=== PATIENT | male | born 1980 | race Caucasian/White ===

== ENCOUNTER 2025-03-11 09:24 | Emergency (ER) | payer OTHER, SELFPAY ==
--- OUTSIDE RECORDS SUMMARY | 2025-03-11 09:27 | XMS_ITS | Encounter Summary ---
Author Organization [place] Address [address] [facility] [place] [address] Care Team Providers Care Central Stores Attendant Name Role Phone Misty Flynn MD Primary Care Provider Tamanna Leong PA-C Unavailable [phone] Samuel Holly MD Unavailable [phone] Nisreen Verduzco RN Unavailable [phone] Misty Flynn MD Unavailable Lilia iDego RAIL DETECTOR CAR OPERATOR UKRA[employer]IAN [employer] INSTRUCTOR Unavailable Bo Dotson RAIL DETECTOR CAR OPERATOR [employer]RA[employer]OLK [employer] INSTRUCTOR Unavailable + [phone] Bo Dotson APRN [employer] INSTRUCTOR Unavailable + [phone] Encounter Details Date Type Department Care Team (Late st Contact Info) Description 12/27/2024 [facility] Medical Advice [address] [address] Anusha Watts, ACCOUNTING MACHINE SERVICER Social History Tobacco Use Types Packs/Day Years Used Date Smoking Tobacco: Never Smokeless Tobacco: Never Alcohol Use Standard Drinks/Week Comments Yes 0 (1 standard drink = 0.6 oz pur e alcohol) moderate use Social Connection and Isolation Panel [NHANES] A nswer Date Recorded Frequency of Communication with Friends and Fami ly Not on file 09/08/2024 How often do you get together with friends or re latives? Once a week 09/08/2024 Attends Jainism Services Not on file 09/08 Active Member of Clubs or Organizations Not on f ile 09/08/2024 Attends Club or Organization Meetings Not on prabhu e 09/08/2024 Marital Status Not on file 09/08/2024 AUDIT-C Answer Date Recorded Q1: How often do you have a drink containing alc ohol? 2-4 times a month 11/25/2023 Q2: How many drinks containi ng alcohol do you have on a typical day when you are drinking? 1 or 2 11/25/2023 Frequency of Binge Drinking Not on file 11/10 PHQ-2 Answer Date Recorded PHQ-2 Score 0 12/24/2024 [facility] [place] [facility] Occupat ional Health - Occupational Stress Questionnaire Answer Date Recorded Do you feel stress - tense, restless, nervous, or anxious, or unable to sleep at night because your mind is troubled all the time - these days? Not at all 09/08/2024 Exercise Vital Sign Answer Date Recorde d On average, how many days pe r week do you engage in moderate to strenuous exercise (like a brisk walk)? 0 days 09/08/2024 On average, how many minutes do you engage in exercise at this level? 0 min 09/08/2024 Adolescent Education Answer Date Record ed Getting School Help Needed Not on file 08/24 Food Insecurity Answer Date Recorded Within the past 12 months, d id you worry that your food would run out before you got money to buy more? No 09/08/2024 Within the past 12 months, d id the food you bought just not last and you didn t have money to get more? No 09/08/2024 Housing Stability Answer Date Recorded Do you have housing? (Toniin g is defined as stable permanent housing and does not include staying outside in a car, in a tent, in an abandoned building, in an overnight long term, or couch-surfing.) Yes 09/08/2024 Are you worried about losing your housing? No 09/08/2024 Financial Resource Strain Answer Date R ecorded Within the past 12 months, h ave you or your family members you live with been unable to get utilities (heat, electricity) when it was really needed? No 09/08/2024 Transportation Needs Answer Date Record ed Within the past 12 months, h as lack of transportation kept you from medical appointments, getting your medicines, non-medical meetings or appointments, work, or from getting things that you need? No 09/08/2024 Interpersonal Safety Answer Date Record ed Do you feel physically and e motionally safe where you currently live? Yes 09/08/2024 Within the past 12 months, h ave you been hit, slapped, kicked or otherwise physically hurt by someone? No 09/08/2024 Within the past 12 months, h ave you been humiliated or emotionally abused in other ways by your partner or ex-partner? 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 Gender Identity Not on file Sexual Orientation Not on file documented as of this encounter Plan of Treatment Upcoming Encounters Date Type Department Care Team (Late st Contact Info) Description 04/15/2025 10:30 AM CDT Office Visit [facility] [address] [place] [phone] [place] [address] [place] [address] documented as of this encounter Visit Diagnoses Not on filedocumented in this encounter Additional Health Concerns Assessment Noted Time PHQ-9 Depression Total Score: 0 11/14/19 24 1:43 PM CHEMICAL ETCHING PROCESSOR documented as of this encounter Care Teams Central Stores Attendant Relationship Specialty [place] [address] [place] [address] PCP - General Family Practice 11/14/14 Tamanna Leong PA-C [address] [facility] [address] [place], [place] [id number] Physician Batch Dumper Physician Batch Dumper 04/02/17 Samuel Holly MD [address] [facility] [address] [place], [place] [address] Urology 04/02/17 Nisreen Verduzco, RN Registered Nurse Urology 04/11/17 [place] [address] [place] [address] Assigned PCP 03/17/16 Lilia Diego APRN UKRAINIAN [employer]OLK ARTS INSTRUCTOR [address] [place] [address] Nurse Practitioner Family Medicine 02/21/22 Bo Dotson APRN UKRAINIAN FOLK ARTS INSTRUCTOR [address] [place] [address] Nurse Practitioner Urology 09/13/24 Bo Dotson APRN UKRAINIAN FOLK ARTS INSTRUCTOR [address] [place] [address] Assigned Surgical Provider 01/02/25 documented as of this encounter
--- OUTSIDE RECORDS SUMMARY | 2025-03-11 09:27 | XMS_ITS | Encounter Summary ---
Author Organization [place] Address [address] [facility] [place] [address] Care Team Providers Care Lead Java Software Engineer Name Role Phone Misty Flynn MD Primary Care Provider [phone] Tamanna Leong PA-C Unavailable [phone] Samuel Holly MD Unavailable [phone] Nisreen Verduzco RN Unavailable [phone] Misty Flynn MD Unavailable Lilia Diego GROUP HOME MANAGER MEDICAL AUDITOR Unavailable Elo Phipps Unavailable Unavailable Bo Dotson GROUP HOME MANAGER MEDICAL AUDITOR Unavailable + [phone] Bo Dotson GROUP HOME MANAGER MEDICAL AUDITOR Unavailable + [phone] Reason for Visit * Reason Onset Date Comments Patient Request for Note/Letter 09/06/2020 positive covid, needs work note Encounter Details Date Type Department Care Team (Late st Contact Info) Description 09/06/2020 [facility] Medical Advice [address] [address] Misty Flynn MD [address] [place] [id number] Patient Request for Note/Letter (positive ... 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 Unable to assess 08/12/2020 1:07 PM CDT documented as of this encounter Miscellaneous Notes * Telephone Encounter - Norma Solis RN - 09/06/2020 11:[address] Flynn - Please review, RN pended letter, please approve and advise if we should order another Covid test Patient tested positive for COVID on 08/29/2020. He had the test completed at [facility]. Patient has been out of work since 08/28/2020. 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 Employer is telling patient he needs to have a negative Covid test prior to returning to work. Patient contacted [facility] to get test repeated and they advised they will not check for a full 90 days as he would still show positive result Patient does not have any symptoms, he lost taste and smell x 3 days, which has now returned Patient does not have any coughing, fever, shortness of breath Patient requesting note for employer stating that he can return to work after 14 days of quarantine. RN advised that if this is an employer requirement, he may need to have another test completed Norma Solis Registered Nurse, AMY (Patient Advocate Liason) [facility] [phone] documented in this encounter Plan of Treatment Upcoming Encounters Date Type Department Care Team (Late st Contact Info) Description 04/15/2025 10:30 AM CDT Office Visit [facility] [place] [id number] [place] [phone] Misty Flynn MD [address] [place] [phone] documented as of this encounter Visit Diagnoses Not on filedocumented in this encounter Additional Health Concerns Assessment Noted Time PHQ-9 Depression Total Score: 0 06/07/20 20 7:08 AM CDT documented as of this encounter Care Teams Lead Java Software Engineer Relationship Specialty [place] [address] [place] [address] PCP - General Family Practice 11/14/14 Tamanna Leong PA-C [address] [place] [address] Physician Adult Daycare Coordinator Physician Adult Daycare Coordinator 04/02/17 Samuel Holly MD [address] [facility] [address] [place], [place] [address] Urology 04/02/17 Nisreen Verduzco, RN Registered Nurse Urology 04/11/17 [place] [address] [place] [address] Assigned PCP 03/17/16 Lilia Diego APRN MEDICAL AUDITOR [address] [place] [address] Nurse Practitioner Family Medicine 02/21/22 Elo Phipps Personal Advocate & Liaison (PAL) Family Medicine 05/29/23 07/21/23 Bo Dotson APRN MEDICAL AUDITOR [address] [place] [address] Nurse Practitioner Urology 09/13/24 Bo Dotson APRN MEDICAL AUDITOR [address] [place] [address] Assigned Surgical Provider 01/02/25 documented as of this encounter
--- OUTSIDE RECORDS SUMMARY | 2025-03-11 09:27 | XMS_ITS | Clinical Summary ---
Author Organization [place] Address [address] [facility] [place] [address] Care Team Providers Care Channel Layer Name Role Phone Misty Flynn MD Primary Care Provider Tamanna Leong PA-C Unavailable Samuel Holly MD Unavailable Nisreen Verduzco RN Unavailable [phone] Misty Flynn MD Unavailable Lilia Diego BEARINGIZER FUEL SYSTEM MAINTENANCE WORKER Unavailable Bo Dotson BEARINGIZER FUEL SYSTEM MAINTENANCE WORKER Unavailable [phone] Bo Dotson BEARINGIZER FUEL SYSTEM MAINTENANCE WORKER Unavailable [phone] Allergies Active Allergy Reactions Criticality Noted Date Comments Doxycycline Nausea and Vomiting 03/13/2016 Ketorolac Tromethamine Rash Low 03/24/2017 Seasonal Allergies 07/08/2013 Tramadol Itching 03/24/2017 Medications fluticasone (FLONASE) 50 MCG/ACT nasal sprayIndications: Seasonal allergic rhinitis, unspecified trigger Crooks 1-2 sprays into both nostrils daily 48 g 3 4 Active oxyCODONE-acetami nophen (PERCOCET) 7.5-325 MG per tablet Take 1 tablet by mouth every 3 hours 4 Active losartan (COZAAR) 50 MG tabletIndications :Benign essential hypertension Take 1 tablet (50 mg) by mouth daily. 90 tablet 3 4 Active sildenafil (VIAGRA) 50 MG tabletIndications :Erectile dysfunction, unspecified erectile dysfunction type Take 1 tablet (50 mg) by mouth daily as needed (sexual activity). 30 tablet 4 4 Active Active Problems Problem Noted Date Diagnosed Date Erectile dysfunction, unspecified erectile dysfu nction type 09/08/2024 Assessment & Plan (09/08/2024 12:03 PM CDT): Started about 1 year ago, pt has been engaged to a new partner and he has been having hard time obtaining erection and maintaining it, will start on sildenafil as needed. Medications side effects and risks was discussed with patient in details, including flushing and headaches..., and advised to call if any side effects, pt agreed to take the medications, and with the treatment plan. . Chronic pain in testicle 07/18/2021 Assessment & Plan (09/08/2024 11:32 AM CDT): Pt has chronic pain in the Left testicle more than Right, and he wishes to discuss with Urologist about possible reversal of his vasectomy as the pain started afer the procedure. 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 Acute recurrent maxillary sinusitis 01/20/2018 Benign essential hypertension 2016 Assessment & Plan (09/08/2024 11:33 AM CDT): Controlled on Losartan 50 mg daily, check BMP. Fixation hardware in foot 04/16/2016 Osteoarthritis of foot 01/08/2016 Seasonal allergic rhinitis 03/02/2009 Resolved Problems Problem Noted Date Diagnosed Date Resolved Date Pain disorder with related p sychological factors (CODE) 07/18/2021 09/08/2024 Overview (08/10/2021): Replacing diagnoses that were inactivated after the 08/10/2021 regulatory import. Other chronic postprocedural pain 07/18/2021 09/08/[address] kay level monitoring 07/18/2021 09/08/2024 Causalgia of left lower limb 06/02/2019 09/03/2022 Chronic pain of right ankle 02/01/2019 04/12/2019 Chronic pain in left foot 04/16/2016 Overview (11/08/2016): Patient is followed by Misty Flynn MD for ongoing prescription of pain medication. All refills should only be approved by this provider, or covering partner. Medication(s): oxyCODONE-acetaminophen (PERCOCET) 5-325 MG per tablet. Maximum quantity per month: 90 Clinic visit frequency required: Q 3 months Controlled substance agreement: Encounter-Level CSA - 04/16/16: Controlled Substance Agreement - Scan on 05/02/2016 12:16 PM : CONTROLLED SUBSTANCE AGREEMENT (below) Pain Clinic evaluation in the past: Yes Date/Location: [facility] Total Score(s): No flowsheet data found. Last [facility] website verification: done on 11/08/2016 [email or web address] Injury of foot 01/05/2016 09/03/2022 Mild major depression 03/02/20152021 HTN, goal below 140/90 12/10/201312/10 Migraine headache 07/07/2013 09/08/2024 Mild major depression 09/12/20112012 CARDIOVASCULAR SCREENING; LD L GOAL LESS THAN 160 09/09/2010 07/18/2021 Essential hypertension, benign 09/04/2007 09/12/2011 Encounters Date Type Department Care Team Description 12/27/2024 MyC Medical Advice [address] [address] Anusha Watts CMA 12/27/[address] [address] Misty Flynn MD 12/24/2024 10:30 AM PRICING CONSULTANT Office Visit [facility] [place] [address] [place] [address] Misty Flynn MD Iten, Bo Liz APRN FUEL SYSTEM MAINTENANCE WORKER Pain in both testicles 12/24/2024 Travel from Last 3 Months Immunizations Name Administration Dates Next Due COVID-19 Monovalent 18+ (Moderna) 03/15/2021,06/2021 DT (PEDS <7y) 05/25/1996,04/22/1996 Hepatitis B, Adult (Energix- B/Recombivax HB) 04/03/1994,10/31/1993,09/21/1993 Influenza Vaccine >6 months,quad, PF 09/03/2022, 07/18/2021 Influenza, Split Virus, Triv alent, Pf (Fluzone\Fluarix) 09/08/2024 MMR (MMRII) 05/25/1996,09/21/1993 Mantoux Tuberculin Skin Test 04/01/2016 TD,PF 7+ (Tenivac) 04/07/2007,11/10/2006 TDAP (Adacel,Boostrix) 07/18/2021 Family History Medical History Relation Comments Sarcoidosis Father Family History Negative No family hx of Relation Status Comments Father Alive Maternal Grandfather Maternal Grandmother Mother Alive Paternal Grandfather Paternal Grandmother Sister Alive Social History Tobacco Use Types Packs/Day Years Used Date Smoking Tobacco: Never Smokeless Tobacco: Never Tobacco Cessation:Counseling Given: Not Answered Alcohol Use Standard Drinks/Week Comments Yes 0 (1 standard drink = 0.6 oz pur e alcohol) moderate use Social Connection and Isolation Panel [NHANES] A nswer Date Recorded Frequency of Communication with Friends and Fami ly Not on file 09/08/2024 How often do you get together with friends or re latives? Once a week 09/08/2024 Attends [employer] Services Not on file 09/08 Active Member [...] Answer Date Recorded PHQ-2 Score 0 12/24/2024 [facility] of Occupat ional Health - Occupational Stress [...] Answer Date Recorded Do you have housing? (Parmjit corbett is defined as stable permanent housing and does not include staying outside in a car, in a tent, in an abandoned building, in an overnight mcc, or couch-surfing.) Yes 09/08/2024 Are you worried [...] on file Legal Sex Male 3:18 AM PRICING CONSULTANT Gender Identity Not on file Sexual Orientation Not on file Last Filed Vital Signs Vital Sign Reading Time Taken Comments Blood Pressure 168/124 12/24/2024 10:24 AM PRICING CONSULTANT Pulse 83 12/24/2024 10:24 AM PRICING CONSULTANT Temperature 36.6 C (97.9 F) 09/08/2024 10:55 AM CDT Respiratory Rate 14 09/08/2024 10:55 AM CDT Oxygen Saturation 97% 12/24/2024 10:24 AM PRICING CONSULTANT Inhaled Oxygen Concentration - - Weight 113.9 kg (251 lb) 09/08/2024 10:55 AM CDT Height 182.9 cm (6') 09/08/2024 10:55 AM CDT Body Mass Index 34.04 09/08/2024 10:55 AM CDT Plan of Treatment Upcoming Encounters Date Type Department Care Team (Late st Contact Info) Description 04/15/2025 10:30 AM CDT Office Visit [address] [address] [place] [id number] [place] [address] [phone] Health Maintenance Due Date Last Done Comments COVID-19 Vaccine ( season) 2024 03/15/2021, 02/15/2021 ANNUAL REVIEW OF HM ORDERS 11/14/202411/14, 09/03/2022, 07/18/2021, Additional history exists BMP 09/08/2025 09/08/2024, 11/10, 09/03/2022, Additional history exists YEARLY PREVENTIVE VISIT 09/08/2025 09/08/20, 09/03/2022, 03/08/2019 LIPID 09/03/2027 09/03/2022, 09/0 06/2021, 03/08/2019, Additional history exists DIABETES SCREENING 09/08/2027 09/08/2024, 0 11/25/2023, 09/03/2022, Additional history exists ADVANCE CARE PLANNING 11/25/2028 11/25/2023, 022 DTAP/TDAP/TD IMMUNIZATION (3 - Td or Tdap) 07/18/2031 07/18/2021, 04/07/2007, 11/10/2006 ZOSTER IMMUNIZATION (1 of 2) 2031 HEPATITIS B IMMUNIZATION Completed 994, 10/31/1993, 09/21/1993 MIGRAINE ACTION PLAN Completed 07/08/2013 HEPATITIS C SCREENING Completed 03/02/2015 HIV SCREENING Completed 03/02/2015, 03/16/2013 INFLUENZA VACCINE Completed 09/08/2024, , 07/18/2021 PHQ-2 (once per calendar year) Completed 12/24/2024, 09/08/2024, 11/14/2023, Additional history exists HPV IMMUNIZATION Aged Out No longer e ligible based on patient's age to complete this topic MENINGITIS IMMUNIZATION Aged Out No l onger eligible based on patient's age to complete this topic Pneumococcal Vaccine: Pediatrics (0 to 5 Years) and At-Risk Patients (6 to 49 Years) Aged Out No longer eligible based on patient's age to complete this topic Procedures Procedure Name Priority Date/Time Associated Diagnosis Comments BASIC METABOLIC PANEL Routine 09/08/2024 12:04 PM CDT Routine general medical examination at a health care facility LIPID REFLEX TO DIRECT LDL PANEL Routine 09/03/2022 8:20 AM CDT Routine general medical examination at a health care facility HIV ANTIGEN ANTIBODY COMBO Routine 03/02/2015 12:19 PM CDT Screen for STD (sexually transmitted disease) HEPATITIS C ANTIBODY Routine 03/02/2015 12:19 PM CDT Screen for STD (sexually transmitted disease) from Last 3 Months or Most Recently Relevant to Health Maintenance Results * Basic metabolic panel (Ca, Cl, CO2, Creat, Gluc, K, Na, BUN) (09/08/2024 12:04 PM CDT) Sodium 137 135 - 145 mmol/L 09/09/2024 6:13 PM CDT [facility] Potassium 4.5 3.4 - 5.3 mmol/L 09/09/2024 6:13 PM CDT [facility] Chloride 99 98 - 107 mmol/L 09/09/2024 6:13 PM T [facility] Carbon Dioxide (CO2) 25 22 - 29 mmol/L 09/09/2024 6:13 PM CDT [facility] Anion Gap 13 7 - 15 mmol/L 09/09/2024 6:13 PM T [facility] Urea Nitrogen 8.4 6.0 - 20.0 mg/dL 09/09/2024 6:13 PM T [facility] Creatinine 1.09 0.67 - 1.17 mg/dL 09/09/2024 6:13 PM T [facility] GFR Estimate 87 >60 mL/min/1.7 3m2 09/09/2024 6:13 PM T [facility] Comment:eGFR calculated 2020 CKD-EPI equation. Calcium 9.6 8.8 - 10.4 mg/dL 09/09/2024 6:13 PM T [facility] Comment:Reference intervals for this test were updated on 05/25/2024 to reflect our healthy population more accurately. There may be differences in the flagging of prior results with similar values performed with this method. Those prior results can be interpreted in the context of the updated reference intervals. Glucose 83 70 - 99 mg/dL 09/09/2024 6:13 PM T [facility] Blood BLOOD SPECIMEN / Unknown Venipuncture / Unknown 09/08/2024 12:04 PM CDT 09/08/2024 12:04 PM CDT us Misty Flynn MD LAB - BLOOD ORDERABLES Final Res ult [facility] [address] [place] [address] * (ABNORMAL) Lipid panel reflex to direct LDL Fasting (09/03/2022 8:20 AM CDT) Cholesterol 164 <200 mg/dL 09/03/2022 9:30 PM CDT LABORATORY Triglycerides 125 <150 mg/dL 09/03/2022 9:30 PM CDT LABORATORY Direct Measure HDL 32(L) >=40 mg/dL 09/03/2022 9:30 PM CDT LABORATORY LDL Cholesterol Calculated 107(H) <=100 mg/dL 09/03/2022 9:30 PM CDT LABORATORY Non HDL Cholesterol 132(H) <130 mg/dL 09/03/2022 9:30 PM CDT SH LABORATORY Patient Fasting > 8hrs? Yes 09/03/2022 9:30 PM CDT OX LABORATORY Blood STRUCTURE OF RIGHT UPPER LIMB / Unknown Venipuncture / Unknown 09/03/2022 8:20 AM CDT 09/03/2022 8:20 AM CDT Narrative LABORATORY - 09/03/2022 9:30 PM CDT Cholesterol Desirable: <200 mg/dL Triglycerides Normal: Less than 150 mg/dL Borderline High: 150-199 mg/dL High: 200-499 mg/dL Very High: Greater than or equal to 500 mg/dL Direct Measure HDL Female: Greater than or equal to 50 mg/dL Male: Greater than or equal to 40 mg/dL LDL Cholesterol Desirable: <100mg/dL Above Desirable: 100-129 mg/dL Borderline High: 130-159 mg/dL High: 160-189 mg/dL Very High: >= 190 mg/dL Non HDL Cholesterol Desirable: 130 mg/dL Above Desirable: 130-159 mg/dL Borderline High: 160-189 mg/dL High: 190-219 mg/dL Very High: Greater than or equal to 220 mg/dL us Misty Flynn MD LAB - BLOOD ORDERABLES Final Res ult LABORATORY [facility] Lab [address] 1st floor, [address] [place] [address], [place] [phone] OX LABORATORY [facility] [address] Lab (no room number, 1st floor of clinic) [place] [address], [facility] [phone] * HIV Antigen Antibody Combo (03/02/2015 12:19 PM CDT) HIV Antigen Antibody Combo Nonreactive HIV-1 p24 Ag & HIV-1/HIV-2 Ab Not Detected NR [facility] Blood specimen (specimen) 03/02/2015 12:19 PM CDT 03/02/2015 12:20 PM CDT us Misty Flynn MD LAB - BLOOD ORDERABLES Final Res ult [facility] [address] * Hepatitis C antibody (03/02/2015 12:19 PM CDT) Hepatitis C Antibody Nonreactive Assay performance characteristics have not been established for newborns, infants, and children NR [facility] Blood specimen (specimen) 03/02/2015 12:19 PM CDT 03/02/2015 12:20 PM CDT us Misty Flynn MD LAB - BLOOD ORDERABLES Final Res ult [address] from Last 3 Months or Most Recently Relevant to Health Maintenance Insurance [employer] Member Subscriber Plan / Payer (Ef fective 2021-Present) Name:Souleymane Valdez Relation to Subscriber:Self Name:Souleymane Valdez Payer ID:[id number] (NAIC) Type:HMO Address: [address] [place] [id number] [facility] Address: [address] [place] [address] [employer] medical corps officer Care Teams Channel Layer Relationship Specialty [place] [address] [place] [address] PCP - General Family Practice 11/14/14 Tamanna Leong PA-C [address] [place] [address] Physician Metal Box Maker Physician Metal Box Maker 04/02/17 Samuel Holly MD [address] [facility] [address] [place], [place] [phone] Urology 04/02/17 Nisreen Verduzco, RN Registered Nurse Urology 04/11/17 [place] [address] [place] [address] Assigned PCP 03/17/16 Lilia Diego APRN FUEL SYSTEM MAINTENANCE WORKER [address] [place], [place] [phone] Nurse Practitioner Family Medicine 02/21/22 Bo Dotson APRN FUEL SYSTEM MAINTENANCE WORKER [address] [place] [address] Nurse Practitioner Urology 09/13/24 Bo Dotson APRN FUEL SYSTEM MAINTENANCE WORKER [address] [place], [place] [phone] Assigned Surgical Provider 01/02/25
--- OUTSIDE RECORDS SUMMARY | 2025-03-11 09:27 | XMS_ITS | Encounter Summary ---
Author Organization [place] Address [address] [place] [address] Care Team Providers Care Paint Prepper Name Role Phone Misty Flynn MD Primary Care Provider [phone] Tamanna Leong PA-C Unavailable [phone] Samuel Holly MD Unavailable [phone] Nisreen Verduzco RN Unavailable [phone] Misty Flynn MD Unavailable Rosa M Salvador Unavailable Unavailable Lilia Diego FRONT OFFICE REPRESENTATIVE ESTATE PLANNER Unavailable Elo Phipps Unavailable Unavailable Bo Dotson FRONT OFFICE REPRESENTATIVE ESTATE PLANNER Unavailable + [phone] Bo Dotson FRONT OFFICE REPRESENTATIVE ESTATE PLANNER Unavailable + [phone] Reason for Visit * Reason Onset Date Comments Refill Request 01/21/2020 [facility] wanted Encounter Details Date Type Department Care Team (Late st Contact Info) Description 01/21/2020 Telephone [facility] [id number] [place] [phone] Misty Flynn MD [address] [place] [address] Refill Request ([facility] wanted) Social History Tobacco Use Types Packs/Day Years Used Date Smoking Tobacco: Never Smokeless Tobacco: Never Alcohol Use Standard Drinks/Week Comments Yes 0 (1 standard drink = 0.6 oz pure alcohol) binge drinks on weekends 6 beers Social Connection and Isolation Panel [NHANES] A nswer Date Recorded Frequency of Communication with Friends and Fami ly Not on file 09/08/2024 How often do you get together with friends or re latives? Once a week 09/08/2024 Attends [employer] Not on file 09/08 Active Member [...] Answer Date Recorded PHQ-2 Score 0 12/24/2024 [facility] of Occupat ional Health - Occupational Stress [...] Answer Date Recorded Do you have housing? (Housin g is defined as stable permanent housing and does not include staying outside in a car, in a tent, in an abandoned building, in an overnight alf, or couch-surfing.) Yes 09/08/2024 Are you worried [...] on file Legal Sex Male 3:18 AM GARAGE MANAGER Gender Identity Not on file Sexual Orientation Not on file COVID-19 Exposure Response Date Recorded In the last 10 days, have yo u been in contact with someone who was confirmed or suspected to have Coronavirus/COVID-19? No / Unsure 05/27/2023 4:01 PM CDT documented as of this encounter Miscellaneous Notes * Telephone Encounter - Shilpa Henao RN - 01/21/2020 4:45 PM CDT Pt can do virtual visit with provider or [email or web address] Shilpa Henao RN * Telephone Encounter - Soumya Cary - 01/21/2020 3:25 PM CDT Pt called in w/ seasonal allergies wondering if he could be prescribed 2 doses of Z-Cortez for this. He understands that he would typically need to be seen for this but is wanting to avoid coming in to the clinic at all costs at this time. [facility] [place] F/u at [phone]. Ok to leave detailed message. Soumya Cary Patient Computer Mechanic documented in this encounter Plan of Treatment Upcoming Encounters Date Type Department Care Team (Late st Contact Info) Description 04/15/2025 10:30 AM CDT Office Visit [facility] [address] [place] [phone] [place] [id number] [place] [phone] documented as of this encounter Visit Diagnoses Not on filedocumented in this encounter Additional Health Concerns Infection Onset Date Last Indicated Resolved Time Rule Out COVID-19 08/12/2020 08/12/2020 08/14/2020 8:47 PM CDT Assessment Noted Time PHQ-9 Depression Total Score: 0 03/08/20 19 11:02 AM CDT documented as of this encounter Care Teams Paint Prepper Relationship Specialty Start Date End [place] [id number] [place] [address] PCP - General Family Practice 11/14/14 Tamanna Leong PA-C [address] [address] Physician Dispute Coordinator Physician Dispute Coordinator 04/02/17 Samuel Holly MD [address] [place] [address] [address] [place] [address] Urology 04/02/17 Nisreen Verduzco, RN Registered Nurse Urology 04/11/17 [place] [address] [place] [address] Assigned PCP 03/17/16 Rosa M Salvador Personal Advocate & Liaison (PAL) Family Practice 06/05/20 06/11/20 Lilia Diego APRN ESTATE PLANNER [address] [place] [address] Nurse Practitioner Family Medicine 02/21/22 Elo Phipps Personal Advocate & Liaison (PAL) Family Medicine 05/29/23 07/21/23 Bo Dotson APRN ESTATE PLANNER [address] [place] [address] Nurse Practitioner Urology 09/13/24 Bo Dotson APRN ESTATE PLANNER [address] [place] [address] Assigned Surgical Provider 01/02/25 documented as of this encounter
--- OUTSIDE RECORDS SUMMARY | 2025-03-11 09:27 | XMS_ITS | Encounter Summary ---
Author Organization [place] Address [address] [facility] [address] Care Team Providers Care Armored Cable Machine Operator Name Role Phone Misty Flynn MD Primary Care Provider Tamanna Leong PA-C Unavailable Samuel Holly MD Unavailable [phone] Nisreen Verduzco RN Unavailable [phone] Misyt Flynn MD Unavailable Misty Flynn MD Unavailable Rosa M Salvador Unavailable Unavailable Lilia Diego SKEIN TIER CURTAIN STRETCHER ASSEMBLER Unavailable Elo Phipps Unavailable Unavailable Bo Dotson SKEIN TIER CURTAIN STRETCHER ASSEMBLER Unavailable [phone] Bo Dotson SKEIN TIER CURTAIN STRETCHER ASSEMBLER Unavailable [phone] Reason for Visit * Reason Onset Date Comments Refill Request 12/16/2017 amLODIPine (NORV ASC) 10 MG tablet Encounter Details Date Type Department Care Team (Late st Contact Info) Description 12/16/2017 Refill [facility] [address] [place] [address] [place] [address] [place] [address] Refill Request (amLODIPine (NORVASC) 10 MG tablet) Social History Tobacco Use Types Packs/Day Years Used Date Smoking Tobacco: Never Smokeless Tobacco: Never Alcohol Use Standard Drinks/Week Comments Yes 0 (1 standard drink = 0.6 oz pur e alcohol) occ Sex and Gender Information Value Date Recorded Sex Assigned at Not on file Legal Sex Male 3:18 AM SAILOR Gender Identity Not on file Sexual Orientation Not on file documented as of this encounter Miscellaneous Notes * Telephone Encounter - Darrel Bell RN - 12/18/2017 12:21 PM CST Per communication preferences only MyChart checked. Dashbid message sent. Darrel Bell RN OR * Telephone Encounter - Misty Flynn MD - 12/17/2017 12:15 PM CST Recommend a follow up in 2 to 3 months Misty Flynn MD [facility] [phone] OR * Telephone Encounter - Darrel Bell RN - 12/17/2017 10:11 AM CST Routing refill request to provider for review/approval because: Labs not current: Darrel Bell RN OR * Telephone Encounter - Kalani Mota - 12/16/2017 4:08 PM CST Requested Prescriptions Pending Prescriptions Disp Refills ??? amLODIPine (NORVASC) 10 MG tablet [Pharmacy Med Name: AMLODIPINE BESYLATE 10 MG TAB] Last Written Prescription Date: 2016 Last Fill Quantity: 90 tablet, # refills: 3 Last Office Visit with [facility] provider: 09/25/2017 90 tablet 2 Sig: TAKE 1 TABLET (10 MG) BY MOUTH DAILY Calcium Channel Blockers Protocol Failed 12/16/2017 11:27 AM Failed - Normal serum creatinine on file in past 12 months Recent Labs Lab Test 07/08/13 1905 CR 1.15 Passed - Blood pressure under 140/90 BP Readings from Last 3 Encounters: 09/25/17 132/85 07/17/17 134/88 05/12/17 122/84 Passed - Recent or future visit with authorizing provider Patient had office visit in the last year or has a visit in the next 30 days with authorizing provider. See Patient Info tab in inbasket, or Choose Columns in Meds & Orders section of the refill encounter. Passed - Patient is age 18 or older OR documented in this encounter Plan of Treatment Upcoming Encounters Date Type Department Care Team (Late st Contact Info) Description 04/15/2025 10:30 AM CDT Office Visit [facility] [id number] [place] [phone] [place] Flynn [place] [id number] [place] [address] documented as of this encounter Visit Diagnoses Diagnosis Benign essential hypertension Essential hypertension, benign documented in this encounter Additional Health Concerns Infection Onset Date Last Indicated Resolved Time Rule Out COVID-19 08/12/2020 08/12/2020 08/14/2020 8:47 PM CDT Assessment Noted Time PHQ-9 Depression Total Score: 0 03/04/20 17 7:07 AM CDT documented as of this encounter Care Teams Armored Cable Machine Operator Relationship Specialty [place] [address] [place] [address] PCP - General Family Practice 11/14/14 [place] [address] [place] [address] PCP - Assigned PCP 03/17/16 01/12/19 Tamanna Leong PA-C [address] [place] [address] [place] [address] Physician Home Health Nurse Licensed Practical Physician Home Health Nurse Licensed Practical 04/02/17 Samuel Holly MD [address] [facility] [address] [place] [address] Urology 04/02/17 Nisreen Verduzco, RN Registered Nurse Urology 04/11/17 [place] [address] [place] [address] Assigned PCP 03/17/16 Rosa M Salvador Personal Advocate & Liaison (PAL) Family Practice 06/05/20 06/11/20 Lilia Diego APRN CURTAIN STRETCHER ASSEMBLER [address] [place] [address] Nurse Practitioner Family Medicine 02/21/22 Elo Phipps Personal Advocate & Liaison (PAL) Family Medicine 05/29/23 07/21/23 Bo Dotson APRN CURTAIN STRETCHER ASSEMBLER [address] [facility] [address] [place] [address] Nurse Practitioner Urology 09/13/24 Bo Dotson APRN CURTAIN STRETCHER ASSEMBLER [address] [facility] [address] [place] [address] Assigned Surgical Provider 01/02/25 documented as of this encounter
--- OUTSIDE RECORDS SUMMARY | 2025-03-11 09:27 | XMS_ITS | Encounter Summary ---
Author Organization [place] Address [address] [facility] [place] [address] Care Team Providers Care Qa Automation Architect Name Role Phone Misty Flynn MD Primary Care Provider [phone] Tamanna Leong PA-C Unavailable [phone] Samuel Holly MD Unavailable [phone] Nisreen Verduzco RN Unavailable [phone] Misty Flynn MD Unavailable Lilia Diego APRN ASSISTED LIVING ASSOCIATE Unavailable Bo Dotson APRN ASSISTED LIVING ASSOCIATE Unavailable + [phone] Bo Dotson APRN ASSISTED LIVING ASSOCIATE Unavailable + [phone] Encounter Details Date Type Department Care Team (Late st Contact Info) Description 03/31/2024 [facility] Medical Advice [address] [address] Annamaria Bunch, AIRFRAME AND POWERPLANT TECHNICIAN Social History Tobacco Use Types Packs/Day Years Used Date Smoking Tobacco: Never Smokeless Tobacco: Never Alcohol Use Standard Drinks/Week Comments Yes 0 (1 standard drink = 0.6 oz pur e alcohol) moderate use Social Connection and Isolat ion Panel [NHANES] Answer Date Recorded In a typical week, how many times do you talk on the phone with family, friends, or neighbors? More than three times a week 11/25/2023 How often do you get togethe r with friends or relatives? Twice a week 11/25/2023 How often do you attend chur ch or scientology services? Never 11/25/2023 Do you belong to any clubs o r organizations such as shinto groups, unions, fraternal or athletic groups, or school groups? No 11/25/2023 How often do you attend meet ings of the clubs or organizations you belong to? Never 11/25/2023 Marital Status Not on file 11/25/2023 AUDIT-C Answer Date Recorded Q1: How often do you have a drink containing alc ohol? 2-4 times a month 11/25/2023 Q2: How many drinks containi ng alcohol do you have on a typical day when you are drinking? 1 or 2 11/25/2023 Frequency of Binge Drinking Not on file 11/10 PHQ-2 Answer Date Recorded PHQ-2 Score 0 11/14/2023 [facility]at ional [facility] - Occupational Stress Questionnaire Answer Date Recorded Do you feel stress - tense, restless, nervous, or anxious, or unable to sleep at night because your mind is troubled all the time - these days? Not at all 11/25/2023 Exercise Vital Sign Answer Date Recorde d On average, how many days pe r week do you engage in moderate to strenuous exercise (like a brisk walk)? 0 days Minutes of Exercise per Session Not on file 11/25/2023 Adolescent Education Answer Date Record ed Getting School Help Needed Not on file 08/24 Food Insecurity Answer Date Recorded Within the past 12 months, d id you worry that your food would run out before you got money to buy more? No 11/25/2023 Within the past 12 months, d id the food you bought just not last and you didn t have money to get more? No 11/25/2023 Housing Stability Answer Date Recorded Do you have housing? (Housin g is defined as stable permanent housing and does not include staying outside in a car, in a tent, in an abandoned building, in an overnight [facility], or couch-surfing.) Yes 11/25/2023 Are you worried about losing your housing? No 11/25/2023 Financial Resource Strain Answer Date R ecorded Within the past 12 months, h ave you or your family members you live with been unable to get utilities (heat, electricity) when it was really needed? No 11/25/2023 Transportation Needs Answer Date Record ed Within the past 12 months, h as lack of transportation kept you from medical appointments, getting your medicines, non-medical meetings or appointments, work, or from getting things that you need? No 11/25/2023 Interpersonal Safety Answer Date Record ed Do you feel physically and e motionally safe where you currently live? Yes 11/14/2023 Within the past 12 months, h ave you been hit, slapped, kicked or otherwise physically hurt by someone? No 11/14/2023 Within the past 12 months, h ave you been humiliated or emotionally abused in other ways by your partner or ex-partner? No 11/14/2023 Sex and Gender Information Value Date Recorded Sex Assigned at Not on file Legal Sex Male 3:18 AM EPIDEMIOLOGIST Gender Identity Not on file Sexual Orientation Not on file documented as of this encounter Plan of Treatment Upcoming Encounters Date Type Department Care Team (Late st Contact Info) Description 04/15/2025 10:30 AM CDT Office Visit [facility] [id number] [place] [phone] [place] [address] [place] [address] documented as of this encounter Visit Diagnoses Not on filedocumented in this encounter Additional Health Concerns Assessment Noted Time PHQ-9 Depression Total Score: 0 11/14/19 24 1:43 PM EPIDEMIOLOGIST documented as of this encounter Care Teams Qa Automation Architect Relationship Specialty Start Date [place] [id number] [place] [address] PCP - General Family Practice 11/14/14 Tamanna Leong PA-C [address] [place] [address] [place] [address] Physician Certified Home Health Aide Physician Certified Home Health Aide 04/02/17 Samuel Holly MD [address] [facility] [address] [place] [address] Urology 04/02/17 Nisreen Verduzco, RAFFY Registered Nurse Urology 04/11/17 [place] [address] [place], [place] [address] Assigned PCP 03/17/16 Lilia Diego APRN ASSISTED LIVING ASSOCIATE [address] [place] [address] Nurse Practitioner Family Medicine 02/21/22 Bo Dotson APRN ASSISTED LIVING ASSOCIATE [address] [place] [address] Nurse Practitioner Urology 09/13/24 Bo Dotson APRN ASSISTED LIVING ASSOCIATE [address] [facility] [address] [place] [address] Assigned Surgical Provider 01/02/25 documented as of this encounter
--- OUTSIDE RECORDS SUMMARY | 2025-03-11 09:27 | XMS_ITS | Encounter Summary ---
Author Organization [place] Address [address] [facility] [place] [address] Care Team Providers Care Aircraft Stress Analyst Name Role Phone Misty Flynn MD Primary Care Provider [phone] Tamanna Leong PA-C Unavailable [phone] Samuel Holly MD Unavailable [phone] Nisreen Verduzco RN Unavailable [phone] Misty Flynn MD Unavailable Lilia Diego PARALEGAL J2EE PROGRAMMER Unavailable Elo Phipps Unavailable Unavailable Bo Dotson PARALEGAL J2EE PROGRAMMER Unavailable + [phone] Bo Dotson PARALEGAL J2EE PROGRAMMER Unavailable + [phone] Encounter Details Date Type Department Care Team (Late st Contact Info) Description 10/09/2022 [facility] Medical Advice [address] [phone] Kristie Thomas, RN Social History Tobacco Use Types Packs/Day Years Used Date Smoking Tobacco: Never Smokeless Tobacco: Never Alcohol Use Standard Drinks/Week Comments Yes 0 (1 standard drink = 0.6 oz pur e alcohol) moderate use PHQ-2 Answer Date Recorded PHQ-2 Score 0 09/03/2022 Sex and Gender Information Value Date Recorded Sex Assigned at Not on file Legal Sex Male 3: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 MACHINE LONG GOODS HELPER Gender Identity Not on file Sexual Orientation Not on file documented as of this encounter Plan of Treatment Upcoming Encounters Date Type Department Care Team (Late st Contact Info) Description 04/15/2025 10:30 AM CDT Office Visit [facility] [address] [place] [phone] [place] [address] [place] [address] documented as of this encounter Visit Diagnoses Not on filedocumented in this encounter Additional Health Concerns Assessment Noted Time PHQ-9 Depression Total Score: 0 09/03/20 22 7:02 AM CDT documented as of this encounter Care Teams Aircraft Stress Analyst Relationship Specialty Start [place] [id number] [place] [id number] PCP - General Family Practice 11/14/14 Tamanna Leong, PACamilaC [address] [address] Physician Sailing Instructor Physician Sailing Instructor 04/02/17 Samuel Holly MD [address] [place] [address] [address] [place] [address] Urology 04/02/17 Nisreen Verduzco, RN Registered Nurse Urology 04/11/17 Mist[place] Flynn [place] [address] [place] [address] Assigned PCP 03/17/16 Lilia Diego APRN J2EE PROGRAMMER [address] [place] [address] Nurse Practitioner Family Medicine 02/21/22 Elo Phipps Personal Advocate & Liaison (PAL) Family Medicine 05/29/23 07/21/23 Bo Dotson APRN J2EE PROGRAMMER [address] [place] [address] Nurse Practitioner Urology 09/13/24 Bo Dotson APRN J2EE PROGRAMMER [address] [place] [address] Assigned Surgical Provider 01/02/25 documented as of this encounter
--- OUTSIDE RECORDS SUMMARY | 2025-03-11 09:27 | XMS_ITS | Encounter Summary ---
Author Organization [place] Address [address] [place] [address] Care Team Providers Care Trolley Worker Name Role Phone Misty Flynn MD Primary Care Provider [phone] Tamanna Leong PA-C Unavailable [phone] Samuel Holly MD Unavailable [phone] Nisreen Verduzco RN Unavailable [phone] Misty Flynn MD Unavailable Lilia Diego APRN REGIONAL ENVIRONMENTAL MANAGER Unavailable Bo Dotson APRN REGIONAL ENVIRONMENTAL MANAGER Unavailable + [phone] Bo Dotson APRN REGIONAL ENVIRONMENTAL MANAGER Unavailable + [phone] Encounter Details Date Type Department Care Team (Late st Contact Info) Description 03/08/2024 [facility] Medical Advice [address] [address] Francesca Webb MA Social History Tobacco Use Types Packs/Day Years [...] often do you attend chur ch or temple services? Never 11/25/2023 Do you belong to any clubs o r organizations such as zoroastrian groups, unions, fraternal or athletic groups, or [...] Answer Date Recorded PHQ-2 Score 0 11/14/2023 [facility]at ional Health - Occupational Stress [...] in an overnight alf, or couch-surfing.) Yes 11/25/2023 Are you worried [...] on file Legal Sex Male 3:18 AM COMPUTER EQUIPMENT REPAIRER Gender Identity Not on file Sexual Orientation Not on file documented as of this encounter Plan of Treatment Upcoming Encounters Date Type Department Care Team (Late st Contact Info) Description 04/15/2025 10:30 AM CDT Office Visit [facility] [address] [place] [address] [place] [address] [place] [address] documented as of this encounter Visit Diagnoses Not on filedocumented in this encounter Additional Health Concerns Assessment Noted Time PHQ-9 Depression Total Score: 0 11/14/19 24 1:43 PM COMPUTER EQUIPMENT REPAIRER documented as of this encounter Care Teams Trolley Worker Relationship Specialty [place] [address] [place] [address] PCP - General Family Practice 11/14/14 Tamanna Leong PA-C [address] [facility] [address] [place] [address] Physician Inventory Control Specialist Physician Inventory Control Specialist 04/02/17 Samuel Holly MD [address] [facility] [address] [place] [address] Urology 04/02/17 Nisreen Verduzco, RN Registered Nurse Urology 04/11/17 [place] [address] [place], [place] [address] Assigned PCP 03/17/16 Lilia Diego APRN REGIONAL ENVIRONMENTAL MANAGER [address] [place], [place] [id number] Nurse Practitioner Family Medicine 02/21/22 Bo Dotson APRN REGIONAL ENVIRONMENTAL MANAGER [address] [place], [place] [address] Nurse Practitioner Urology 09/13/24 Bo Dotson APRN REGIONAL ENVIRONMENTAL MANAGER [address] [place], [place] [address] Assigned Surgical Provider 01/02/25 documented as of this encounter
--- OUTSIDE RECORDS SUMMARY | 2025-03-11 09:27 | XMS_ITS | Encounter Summary ---
Author Organization [place] Address [address] [place] [address] Care Team Providers Care Ammunition Components Inspector Name Role Phone Misty Flynn MD Primary Care Provider Tamanna Leong PA-C Unavailable [phone] Samuel Holly MD Unavailable [phone] Nisreen Verduzco RN Unavailable [phone] Misty Flynn MD Unavailable Misty Flynn MD Unavailable Rosa M Salvador Unavailable Unavailable Lilia Diego GEOLOGICAL TECHNICIAN RIGHT OF WAY AGENT Unavailable Elo Phipps Unavailable Unavailable Bo Dotson GEOLOGICAL TECHNICIAN RIGHT OF WAY AGENT Unavailable + [phone] Bo Dotson GEOLOGICAL TECHNICIAN RIGHT OF WAY AGENT Unavailable + [phone] Encounter Details Date Type Department Care Team (Late st Contact Info) Description 04/17/2018 [facility] Medical Advice [address] [phone] Roshni Cunningham MA Social History Tobacco Use Types Packs/Day Years Used Date Smoking Tobacco: Never Smokeless Tobacco: Never Alcohol Use Standard Drinks/Week Comments Yes 0 (1 standard drink = 0.6 oz pur e alcohol) occ Sex and Gender Information Value Date Recorded Sex Assigned at Not on file Legal Sex Male 3:18 AM TUNNEL MAN Gender Identity Not on file Sexual Orientation Not on file documented as of this encounter Plan of Treatment Upcoming Encounters Date Type Department Care Team (Late st Contact Info) Description 04/15/2025 10:30 AM CDT Office Visit [facility] [address] [place] [address] [place] [address] [place] [address] documented as of this encounter Visit Diagnoses Not on filedocumented in this encounter Additional Health Concerns Infection Onset Date Last Indicated Resolved Time Rule Out COVID-19 08/12/2020 08/12/2020 08/14/2020 8:47 PM CDT Assessment Noted Time PHQ-9 Depression Total Score: 0 01/22/20 18 8:00 AM CDT documented as of this encounter Care Teams Ammunition Components Inspector Relationship Specialty Start [place] [id number] [place] [address] PCP - General Family Practice 11/14/14 [place] [address] [place], [place] [address] PCP - Assigned PCP 03/17/16 01/12/19 Tamanna Leong, EDWIN [address] [address] Physician Meat Process Worker Physician Meat Process Worker 04/02/17 Samuel Holly MD [address] [facility] [address] [place], [place] [address] Urology 04/02/17 Nisreen Verduzco, RN Registered Nurse Urology 04/11/17 [place] [address] [place] [address] Assigned PCP 03/17/16 Rosa M Salvador Personal Advocate & Liaison (PAL) Family Practice 06/05/20 06/11/20 Lilia Diego APRN RIGHT OF WAY AGENT [address] [place] [address] Nurse Practitioner Family Medicine 02/21/22 Elo Phipps Personal Advocate & Liaison (PAL) Family Medicine 05/29/23 07/21/23 Bo Dotson APRN RIGHT OF WAY AGENT [address] [place] [address] Nurse Practitioner Urology 09/13/24 Bo Dotson APRN RIGHT OF WAY AGENT [address] [place] [address] Assigned Surgical Provider 01/02/25 documented as of this encounter
--- OUTSIDE RECORDS SUMMARY | 2025-03-11 09:27 | XMS_ITS | Encounter Summary ---
Author Organization [place] Address [address] [facility] [place] [address] Care Team Providers Care Fourdrinier Machine Tender Name Role Phone Misty Flynn MD Primary Care Provider [phone] Tamanna Leong PA-C Unavailable [phone] Samuel Holly MD Unavailable [phone] Nisreen Verduzco RN Unavailable [phone] Misty Flynn MD Unavailable Lilia Diego SALESPERSON PARTS TISSUE RECOVERY TECHNICIAN Unavailable Bo Dotson APRN TISSUE RECOVERY TECHNICIAN Unavailable + [phone] Bo Dotson APRN TISSUE RECOVERY TECHNICIAN Unavailable + [phone] Encounter Details Date Type Department Care Team (Late st Contact Info) Description 01/20/2024 [facility] Medical Advice [place] Centralized Scheduling [facility] [place] [address] Terrell Rojas Social History Tobacco Use Types Packs/Day Years [...] week 11/25/2023 How often do you attend [facility] or islam services? Never 11/25/2023 Do you belong to any clubs o r organizations such as caodaism groups, unions, fraternal or athletic groups, or [...] Answer Date Recorded PHQ-2 Score 0 11/14/2023 [facility] of Occupat ional Health - Occupational Stress [...] in an abandoned building, in an overnight half-way, or couch-surfing.) Yes 11/25/2023 Are you worried [...] on file Legal Sex Male 3:18 AM POLICY WRITER TYPIST Gender Identity Not on file Sexual Orientation Not on file documented as of this encounter Plan of Treatment Upcoming Encounters Date Type Department Care Team (Late st Contact Info) Description 04/15/2025 10:30 AM CDT Office Visit [facility] [address] [place] [address] [place] [address] [place] [address] documented as of this encounter Visit Diagnoses Not on filedocumented in this encounter Additional Health Concerns Assessment Noted Time PHQ-9 Depression Total Score: 0 11/14/19 24 1:43 PM POLICY WRITER TYPIST documented as of this encounter Care Teams Fourdrinier Machine Tender Relationship Specialty [place] [address] [place] [address] PCP - General Family Practice 11/14/14 Tamanna Leong PA-C [address] [address] Physician Deaf/Hard Of Hearing Specialist Physician Deaf/Hard Of Hearing Specialist 04/02/17 Samuel Holly MD [address] [place] [address] Urology 04/02/17 Nisreen Verduzco, RN Registered Nurse Urology 04/11/17 [place] [address] [place], [place] [address] Assigned PCP 03/17/16 Lilia Diego APRN TISSUE RECOVERY TECHNICIAN [address] [place], [place] [id number] Nurse Practitioner Family Medicine 02/21/22 Bo Dotson APRN TISSUE RECOVERY TECHNICIAN [address] [place] [address] Nurse Practitioner Urology 09/13/24 Bo Dotson APRN TISSUE RECOVERY TECHNICIAN [address] [place] [address] Assigned Surgical Provider 01/02/25 documented as of this encounter
--- OUTSIDE RECORDS SUMMARY | 2025-03-11 09:28 | XMS_ITS | Encounter Summary ---
Author Organization [place] Address [address] [facility] [place] [address] Care Team Providers Care Earthmoving Plant Operator Name Role Phone Misty Flynn MD Primary Care Provider [phone] Tamanna Leong PA-C Unavailable [phone] Samuel Holly MD Unavailable [phone] Nisreen Verduzco RN Unavailable [phone] Misty Flynn MD Unavailable Lilia Diego DIRECTOR TRANSLATIONAL CUTTING TOOL SHARPENER Unavailable Elo Phipps Unavailable Unavailable Bo Dotson DIRECTOR TRANSLATIONAL CUTTING TOOL SHARPENER Unavailable + [phone] Bo Dotson DIRECTOR TRANSLATIONAL CUTTING TOOL SHARPENER Unavailable + [phone] Encounter Details Date Type Department Care Team (Late st Contact Info) Description 01/04/2022 MyC Medical Advice [address] [phone] Anusha Watts, CONVEYOR MONITOR Social History Tobacco Use Types Packs/Day Years Used Date Smoking Tobacco: Never Smokeless Tobacco: Never Alcohol Use Standard Drinks/Week Comments Yes 0 (1 standard drink = 0.6 oz pur e alcohol) moderate use PHQ-2 Answer Date Recorded PHQ-2 Total Score (Adult) - Positive if 3 or more points; Administer PHQ-9 if positive 0 08/22/2021 Sex and Gender Information Value Date Recorded Sex Assigned at Not on file 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 Gender Identity Not on file Sexual Orientation Not on file documented as of this encounter Plan of Treatment Upcoming Encounters Date Type Department Care Team (Late st Contact Info) Description 04/15/2025 10:30 AM CDT Office Visit [facility] [address] [place] [address] [place] [address] [place] [address] documented as of this encounter Visit Diagnoses Not on filedocumented in this encounter Additional Health Concerns Assessment Noted Time PHQ-9 Depression Total Score: 0 08/23/20 7:02 AM CDT documented as of this encounter Care Teams Earthmoving Plant Operator Relationship Specialty [place] [address] [place] [address] PCP - General Family Practice 11/14/14 Tamanna Leong, PA-C [address] [facility] 500 [place] [address] Physician Manager Technical Sales Physician Manager Technical Sales 04/02/17 Samuel Holly MD 420 [facility] [address] [place] [address] Urology 04/02/17 Nisreen Verduzco, RN Registered Nurse Urology 04/11/17 [place] [address] [place], [place] [id number] Assigned PCP 03/17/16 Lilia Diego APRN CUTTING TOOL SHARPENER [address] [place] [address] Nurse Practitioner Family Medicine 02/21/22 Elo Phipps Personal Advocate & Liaison (PAL) Family Medicine 05/29/23 07/21/23 Bo Dotson APRN CUTTING TOOL SHARPENER [address] [place] [address] Nurse Practitioner Urology 09/13/24 Bo Dotson APRN CUTTING TOOL SHARPENER [address] [place] [address] Assigned Surgical Provider 01/02/25 documented as of this encounter
--- OUTSIDE RECORDS SUMMARY | 2025-03-11 09:28 | XMS_ITS | Encounter Summary ---
Author Organization [place] Address [address] [facility] [place] [address] Care Team Providers Care Television Installer Helper Name Role Phone Misty Flynn MD Primary Care Provider [phone] Tamanna Leong PA-C Unavailable [phone] Samuel Holly MD Unavailable [phone] Nisreen Verduzco RN Unavailable [phone] Misty Flynn MD Unavailable Misty Flynn MD Unavailable Rosa M Salvador Unavailable Unavailable Lilia Diego LAB ANALYST PROGRAM RESEARCH SPECIALIST Unavailable Elo Phipps Unavailable Unavailable Bo Dotson LAB ANALYST PROGRAM RESEARCH SPECIALIST Unavailable + [phone] Bo Dotson LAB ANALYST PROGRAM RESEARCH SPECIALIST Unavailable + [phone] Encounter Details Date Type Department Care Team (Late st Contact Info) Description 08/09/2016 MyC Medical Advice [address] [phone] Darrel Bell, RN Social History Tobacco Use Types Packs/Day Years Used Date Smoking Tobacco: Never Smokeless Tobacco: Never Alcohol Use Standard Drinks/Week Comments Yes 0 (1 standard drink = 0.6 oz pur e alcohol) weekends Sex and Gender Information Value Date Recorded Sex Assigned at Not on file Legal Sex Male 3:18 AM POULTRY INSEMINATOR Gender Identity Not on file Sexual Orientation Not on file documented as of this encounter Plan of Treatment Upcoming Encounters Date Type Department Care Team (Late st Contact Info) Description 04/15/2025 10:30 AM CDT Office Visit [facility] [address] [place] [address] [place] [address] [place] [address] documented as of this encounter Visit Diagnoses Not on filedocumented in this encounter Additional Health Concerns Infection Onset Date Last Indicated Resolved Time Rule Out COVID-19 08/12/2020 08/12/2020 08/14/2020 8:47 PM CDT Assessment Noted Time PHQ-9 Depression Total Score: 0 07/09/20 16 7:20 AM CDT documented as of this encounter Care Teams Television Installer Helper Relationship Specialty Start Date [place] [id number] [place] [address] PCP - General Family Practice 11/14/14 [place] [address] [place], [place] [id number] PCP - Assigned PCP 03/17/16 01/12/19 Tamanna Leong, EDWIN [address] [address] Physician Lacquer Mixer Physician Lacquer Mixer 04/02/17 Samuel Holly MD 420 [facility] 394 [place], [place] [address] Urology 04/02/17 Nisreen Verduzco, RN Registered Nurse Urology 04/11/17 [place] [address] [place] [address] Assigned PCP 03/17/16 Rosa M Salvador Personal Advocate & Liaison (PAL) Family Practice 06/05/20 06/11/20 Lilia Diego APRN PROGRAM RESEARCH SPECIALIST [address] [place] [address] Nurse Practitioner Family Medicine 02/21/22 Elo Phipps Personal Advocate & Liaison (PAL) Family Medicine 05/29/23 07/21/23 Bo Doston APRN PROGRAM RESEARCH SPECIALIST [address] [place] [address] Nurse Practitioner Urology 09/13/24 Bo Dotson APRN PROGRAM RESEARCH SPECIALIST [address] [place] [address] Assigned Surgical Provider 01/02/25 documented as of this encounter
--- OUTSIDE RECORDS SUMMARY | 2025-03-11 09:28 | XMS_ITS | Clinical Summary ---
Author Organization [employer] [facility] [employer] [facility] Address [address] [place] [address] Care Team Providers Care King Maker Name Role Phone Misty Flynn MD Primary Care Provider [phone] Allergies No known active allergies Medications SERTRALINE 50 MG TAB take 1 tablet (50 mg) by oral route once daily Active MEDICATION ORDER COMPOSER ANTIDEPRESSANT 1/2 TAB DAILY Active OXYCODONE-ACET AMINOPHEN 5 MG-325 MG TAB Take 1 to 2 tablets by mouth every 4 hours as needed for pain. 60 0 8 Active TORADOL 10 MG TAB take 1 tablet (10 mg) by oral route every 8 hours until completed 12 0 8 Active fexofenadine HCl (COLBY ALLERGY ORAL) Take by mouth. A ctive amLODIPine (NORVASC) 10 mg tablet Take 10 mg by mouth once daily. Active Social History Tobacco Use Types Packs/Day Years Used Date Smoking Tobacco: Never Smokeless Tobacco: Never Alcohol Use Standard Drinks/Week Comments Yes 0 (1 standard drink = 0.6 oz pur e alcohol) Interpersonal Safety Answer Date Record ed Are you being hit, kicked, p ushed or yelled at (see row info)? No 04/01/2024 Interpersonal Safety Abuse 12 - 18 Not on file 04/01/2024 Interpersonal Safety Ambulatory Vulnerability No t on file 04/01/2024 Sex and Gender Information Value Date Recorded Sex Assigned at Not on file Legal Sex Male 6:33 AM FINGERPRINT CLASSIFIER Gender Identity Not on file Sexual Orientation Not on file Obstetrics History Last Filed Vital Signs Vital Sign Reading Time Taken Comments Blood Pressure 153/107 04/01/2024 6:04 AM CDT Pulse 81 04/01/2024 6:04 AM CDT Temperature 36.6 C (97.9 F) 04/01/2024 6:04 AM CDT Respiratory Rate 16 04/01/2024 6:04 AM CDT Oxygen Saturation 97% 04/01/2024 6:06 AM CDT Inhaled Oxygen Concentration - - Weight 108.5 kg (239 lb 4.8 oz) 04/01/2024 6:04 AM CDT Height 182.9 cm (6') 04/01/2024 6:04 AM CDT Body Mass Index 32.45 04/01/2024 6:04 AM CDT Plan of Treatment Health Maintenance Due Date Last Done Comments Tdap 1992 Depression screening for age 12+ 1993 HIV for age 15-65 1996 BMI (ht and wt on same day) for age 18+ 1999 Hepatitis C screening for ag e 18-79 1999 Tetanus booster 2001 Lipids for age 35-44 2016 COVID-19 vaccine series ( season) 2024 03/15/2021, 02/15/2021 Influenza Vaccine (Season Ended) 2025 Pneumococcal series for age 6-49 Aged Out No longer eligible b ased on patient's age to complete this topic Insurance [address] [place] [id number] [place] [id number] Advance Directives * Full Code (Latest Code Status on File) Date Activated Date Inactivated Comments 10/13/2008 8:06 AM 10/13/2008 3:49 PM Care Teams King Maker Relationship Specialty [place] [address] [place] [address] PCP - General Family Practice 03/30/19
--- OUTSIDE RECORDS SUMMARY | 2025-03-11 09:28 | XMS_ITS | Encounter Summary ---
Author Organization [place] Address [address] [facility] [place] [address] Care Team Providers Care Photography Coordinator Name Role Phone Misty Flynn MD Primary Care Provider [phone] Tamanna Leong PA-C Unavailable [phone] Samuel Holly MD Unavailable [phone] Nisreen Verduzco RN Unavailable [phone] Misty Flynn MD Unavailable Lilia Diego REPORT ANALYST DRAGSAW OPERATOR Unavailable Elo Phipps Unavailable Unavailable Bo Dotson REPORT ANALYST DRAGSAW OPERATOR Unavailable + [phone] Bo Dotson REPORT ANALYST DRAGSAW OPERATOR Unavailable + [phone] Encounter Details Date Type Department Care Team (Late st Contact Info) Description 09/12/2021 [facility] [place] [address] [phone] Arely Stinson, RAFFY Social History Tobacco Use Types Packs/Day Years [...] on file Legal Sex Male 3:18 AM 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 No / Unsure 08/22/2021 9:59 AM CDT documented as of this encounter Plan of Treatment Upcoming Encounters Date Type Department Care Team (Late st Contact Info) Description 04/15/2025 10:30 AM CDT Office Visit [facility] [address] [place] [address] [place] [address] [place], [place] [phone] documented as of this encounter Visit Diagnoses Not on filedocumented in this encounter Additional Health Concerns Assessment Noted Time PHQ-9 Depression Total Score: 0 08/23/20 21 7:02 AM CDT documented as of this encounter Care Teams Photography Coordinator Relationship Specialty [place] [address] [place] [address] PCP - General Family Practice 11/14/14 Tamanna Leong PA-C [address] [address] Physician Assistant Construction Superintendent Physician Assistant Construction Superintendent 04/02/17 Samuel Holly MD [address] [place] [address] Urology 04/02/17 Nisreen Verduzco, RN Registered Nurse Urology 04/11/17 [place] [address] [place], [place] [id number] Assigned PCP 03/17/16 Lilia Diego APRN DRAGSAW OPERATOR [address] [place] [address] Nurse Practitioner Family Medicine 02/21/22 Elo Phipps Personal Advocate & Liaison (PAL) Family Medicine 05/29/23 07/21/23 Bo Dotson APRN DRAGSAW OPERATOR [address] [place] [address] Nurse Practitioner Urology 09/13/24 Bo Dotson APRN DRAGSAW OPERATOR [address] [place] [address] Assigned Surgical Provider 01/02/25 documented as of this encounter
[2025-03-11 09:29] VITALS: BP 150/114; PULSE 80; RESP 18; TEMP 36.9; O2SAT 97; BMI 32.5
--- NOTE | 2025-03-11 09:49 | ED_ITS ---
HPI - Abdominal Pain General Chief Complaint: Abdominal Pain Stated Complaint: Wc- hurt his abdominal Time Seen by Provider: 03/11/25 09:43 History of Present Illness HPI narrative: Patient is a 44-year-old gentleman who was lifting and 86 lb printer when he developed pain in his low back with radiation to the flank bilaterally. The pain is worse on the right. He was unable upon the printer down right away leading to further discomfort. Patient is concerned he may have injured his abdomen as well. He has no fevers no chills no night sweats no cough no shortness of breath. He has had no nausea no vomiting. Pain is 8/10 and dull. Related Data Home Medications ?Medication ?Instructions ?Recorded ?Confirmed Tracey 03/11/25 losartan 50 mg tablet 50 mg PO DAILY 03/11/25 03/11/25 Allergies Allergy/AdvReac Type Severity Reaction Status Date / Time Sulfa (Sulfonamide Allergy Mild Verified 03/11/25 09:33 Antibiotics) Review of Systems Status of ROS Reports: 10 or more systems reviewed and unremarkable except as noted in History and below [facility] Social History Smoking Status: Never smoker How often do you have a drink containing alcohol: 2-4 times a month AUDIT-C Alcohol total score: 2 Non-prescribed substance use: denies use Exam Narrative: Exam Narrative: EXAM GENERAL: Patient appears comfortable and well. EYES: No scleral icterus. LYMPH: No supraclavicular or cervical lymphadenopathy. SKIN: Visible skin seen during exam normal or with benign process only. EXT: No dependent lower extremity pedal edema. HEART: Regular rate and rhythm with no murmurs, rubs, or gallops. LUNGS: Clear to auscultation bilaterally with no crackles or wheezes. ABD: Soft, non tender, non distended. PSYCH: Good eye contact, speech is not pressured. Const: Vital Signs, click to edit/add: Vital Signs - 24 hr 03/11/25 09:29 Temperature 98.4 F Pulse Rate [Pulse Oximeter] 80 Respiratory Rate 18 Blood Pressure [Ri ght Upper Arm] 150/114 H Pulse Oximetry 97 Oxygen Delivery Me thod Room Air Course Vital Signs Vital signs: Initial Vital Signs Temperature 98.4 F 03/11/25 09:29 Temperature Source Temporal Artery Scan 03/11/25 09:29 Pulse Rate 80 03/11/25 09:29 Respiratory Rate 18 03/11/25 09:29 Blood Pressure 150/114 H 03/11/25 09:29 Blood Pressure Mean 126 H 03/11/25 09:29 Blood Pressure Position Sitting 03/11/25 09:29 Pulse Oximetry 97 03/11/25 09:29 Oxygen Delivery Method Room Air 03/11/25 09:29 Vital Signs Temperature 98.4 F 03/11/25 09:29 Pulse Rate 80 03/11/25 09:29 Respiratory Rate 18 03/11/25 09:29 Blood Pressure 150/114 H 03/11/25 09:29 Pulse Oximetry 97 03/11/25 09:29 Oxygen Delivery Method Room Air 03/11/25 09:29 Temperature 98.4 F 03/11/25 09:29 Pulse Rate 80 03/11/25 09:29 Respiratory Rate 18 03/11/25 09:29 Blood Pressure 150/114 H 03/11/25 09:29 Pulse Oximetry 97 03/11/25 09:29 Oxygen Delivery Method Room Air 03/11/25 09:29 MDM - Abdominal Pain MDM Narrative Medical decision making narrative: Patient is a 44-year-old gentleman with the abrupt onset of pain when lifting a very heavy printer. He is concerned he may have ruptured something in his abdomen. He has a completely normal exam. We did have a nice long discussion and I did agree to x-ray is low back to rule out compression fracture or similar. I do not find any other significant abnormalities and he has otherwise normal vital signs with the exception of hypertension. I did recommend ice as well as Tylenol ibuprofen advanced activity as tolerated follow-up with his primary physician as needed. X-ray series unremarkable upon my review. Discharge Plan Discharge Clinical Impression: Abdominal muscle strain Patient Disposition: Home, Self-Care Condition: Stable Instructions: Muscle Strain (ED) Additional Instructions: Ice packs Tylenol Motrin Follow-up with your doctor as needed. Activity Level: No Restrictions Discharge Diet: Regular Prescriptions: No Action losartan 50 mg tablet 50 mg PO DAILY Tracey Stand Alone Forms: [facility] Info Instructions
--- NOTE | 2025-03-11 09:49 | CRLHL7_ITS ---
For Patients: As a result of the Century Cures Act, medical imaging exams and procedure reports are released immediately into your electronic medical record. You may view this report before your referring provider. If you have questions, please contact your health care provider. INDICATION: Lifted printer at work, now with back pain TECHNIQUE: Lumbar spine 2 view. COMPARISON: None. FINDINGS: Bones: Alignment is normal. No fractures or significant bone lesions. Joints: Disc spaces and facets are unremarkable. Soft tissues: Unremarkable. IMPRESSION: Unremarkable lumbar spine. Dictated by Soumya Pan MD @ 03/11/2025 10:04:51 AM (Electronically Signed)
--- OUTSIDE RECORDS SUMMARY | 2025-03-11 10:22 | XMS_ITS | Clinical Summary ---
Author Organization [place] Address [address] [facility] [place] [address] Care Team Providers Care Surgical Services Coordinator Name Role Phone Misty Flynn MD Primary Care Provider Tamanna Leong PA-C Unavailable [phone] Samuel Holly MD Unavailable [phone] Nisreen Verduzco RN Unavailable [phone] Misty Flynn MD Unavailable Lilia Diego ALODIZE MACHINE OPERATOR GUSSET EDGER Unavailable Bo Dotson ALODIZE MACHINE OPERATOR GUSSET EDGER Unavailable [phone] Dotson ALODIZE MACHINE OPERATOR GUSSET EDGER Unavailable [phone] Allergies Active Allergy Reactions Criticality Noted Date Comments Doxycycline Nausea and Vomiting 03/13/2016 Ketorolac Tromethamine Rash Low 03/24/2017 Seasonal Allergies 07/08/2013 Tramadol Itching 03/24/2017 Medications fluticasone (FLONASE) 50 MCG/ACT nasal sprayIndications: Seasonal allergic rhinitis, unspecified trigger [place] 1-2 sprays into both nostrils daily 48 [...] been going since 2016, 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 Last [facility] website verification: done on 11/08/2016 [email or web address] Parking/ Injury of foot 01/05/2016 09/03/2022 Mild major depression 03/02/20152021 HTN, goal below 140/90 12/10/201312/10 Migraine headache 07/07/2013 09/08/2024 Mild major depression 09/12/20112012 CARDIOVASCULAR SCREENING; LD L GOAL LESS THAN 160 09/09/2010 07/18/2021 Essential hypertension, benign 09/04/2007 09/12/2011 Encounters Date Type Department Care Team Description 12/27/2024 MyC Medical Advice [address] [phone] Anusha Watts CMA 12/27/[address] [address] Misty Flynn MD 12/24/2024 10:30 AM BREED TO WEAN PRODUCTION TECHNICIAN Office Visit [facility] [place] [address] [place] [address] Misty Flynn MD Iten, Bo Liz APRN GUSSET EDGER Pain in both testicles 12/24/2024 Travel from [...] re latives? Once a week 09/08/2024 Attends [employer] Not on file 09/08 Active Member [...] Answer Date Recorded PHQ-2 Score 0 12/24/2024 [facility] - Occupational [...] in an abandoned building, in an overnight senior living, or couch-surfing.) Yes 09/08/2024 Are you worried [...] on file Legal Sex Male 3:18 AM BREED TO WEAN PRODUCTION TECHNICIAN Gender Identity Not on file Sexual Orientation Not on file Last Filed Vital Signs Vital Sign Reading Time Taken Comments Blood Pressure 168/124 12/24/2024 10:24 AM BREED TO WEAN PRODUCTION TECHNICIAN Pulse 83 12/24/2024 10:24 AM BREED TO WEAN PRODUCTION TECHNICIAN Temperature 36.6 C (97.9 F) 09/08/2024 10:55 AM CDT Respiratory Rate 14 09/08/2024 10:55 AM CDT Oxygen Saturation 97% 12/24/2024 10:24 AM BREED TO WEAN PRODUCTION TECHNICIAN Inhaled Oxygen Concentration - - Weight 113.9 kg (251 lb) 09/08/2024 10:55 AM CDT Height 182.9 cm (6') 09/08/2024 10:55 AM CDT Body Mass Index 34.04 09/08/2024 10:55 AM CDT Plan of Treatment Upcoming Encounters Date Type Department Care Team (Late st Contact Info) Description 04/15/2025 10:30 AM CDT Office Visit [address] [phone] [place] [id number] [place] [phone] Health Maintenance Due Date Last Done Comments [...] - 145 mmol/L 09/09/2024 6:13 PM CDT [facility] Potassium 4.5 3.4 - 5.3 mmol/L 09/09/2024 6:13 PM CDT [facility] Chloride 99 98 - 107 mmol/L 09/09/2024 6:13 PM T [facility] Carbon Dioxide (CO2) 25 22 - 29 mmol/L 09/09/2024 6:13 PM CDT [facility] Anion Gap 13 7 - 15 mmol/L 09/09/2024 6:13 PM T [facility] Urea Nitrogen 8.4 6.0 - 20.0 mg/dL 09/09/2024 6:13 PM T [facility] Creatinine 1.09 0.67 - 1.17 mg/dL 09/09/2024 6:13 PM T [facility] GFR Estimate 87 >60 mL/min/1.7 3m2 09/09/2024 6:13 PM T [facility] Comment:eGFR calculated 2020 CKD-EPI equation. Calcium 9.6 8.8 - 10.4 mg/dL 09/09/2024 6:13 PM T [facility] Comment:Reference intervals for this test were updated on 05/25/2024 to reflect our healthy population more accurately. There may be differences in the flagging of prior results with similar values performed with this method. Those prior results can be interpreted in the context of the updated reference intervals. Glucose 83 70 - 99 mg/dL 09/09/2024 6:13 PM T [facility] Blood BLOOD SPECIMEN / Unknown Venipuncture / Unknown 09/08/2024 12:04 PM CDT 09/08/2024 12:04 PM CDT us Misty Flynn MD LAB - BLOOD ORDERABLES Final Res ult [facility] [address] [place] [address] * (ABNORMAL) Lipid panel reflex to direct [...] - BLOOD ORDERABLES Final Res ult LABORATORY [facility] [address] 1st floor, [address] [place] [address], [place] [phone] OX LABORATORY [facility] [address] Lab (no room number, 1st floor of clinic) [place] [address], [facility] [phone] * HIV Antigen Antibody Combo (03/02/2015 12:19 PM CDT) HIV Antigen Antibody Combo Nonreactive HIV-1 p24 Ag & HIV-1/HIV-2 Ab Not Detected NR [facility] Blood specimen (specimen) 03/02/2015 12:19 PM CDT 03/02/2015 12:20 PM CDT us Misty Flynn MD LAB - BLOOD ORDERABLES Final Res ult [facility] [address] * Hepatitis C antibody (03/02/2015 12:19 PM CDT) Hepatitis C Antibody Nonreactive Assay performance characteristics have not been established for newborns, infants, and children NR [facility] Blood specimen (specimen) 03/02/2015 12:19 PM CDT 03/02/2015 12:20 PM CDT us Misty Flynn MD LAB - BLOOD ORDERABLES Final Res ult [address] from Last 3 Months or Most Recently Relevant to Health Maintenance Insurance [employer] Member Subscriber Plan / Payer (Ef fective 2021-Present) Name:Souleymane Valdez Relation to Subscriber:Self Name:Souleymane Valdez Payer ID:[id number] (NAIC) Type:HMO Address: [address] [place] [phone] [facility] Address: [address] [place] [address] [employer] food stylist Care Teams Surgical Services Coordinator Relationship Specialty [place] [address] [place] [address] PCP - General Family Practice 11/14/14 Tamanna Leong PA-C [address] [place] [address] Physician Infection Control Practitioner Physician Infection Control Practitioner 04/02/17 Samuel Holly MD [address] [facility] [address] [place], [place] [address] Urology 04/02/17 Nisreen Verduzco, RN Registered Nurse Urology 04/11/17 [place] [address] [place] [address] Assigned PCP 03/17/16 Lilia Diego APRN GUSSET EDGER [address] [place], [place] [id number] Nurse Practitioner Family Medicine 02/21/22 Bo Dotson APRN GUSSET EDGER [address] [place] [address] Nurse Practitioner Urology 09/13/24 Bo Dotson APRN GUSSET EDGER [address] [place], [place] [address] Assigned Surgical Provider 01/02/25
--- OUTSIDE RECORDS SUMMARY | 2025-03-11 10:22 | XMS_ITS | Encounter Summary ---
Author Organization [place] Address [address] [facility] [place] [address] Care Team Providers Care Travel Registered Nurse Pacu Name Role Phone Misty Flynn MD Primary Care Provider Tamanna Leong PA-C Unavailable [phone] Samuel Holly MD Unavailable [phone] Nisreen Verduzco RN Unavailable [phone] Misty Flynn MD Unavailable Lilia Diego ENROLLED AGENT PHOTOCOMPOSING KEYBOARD OPERATOR Unavailable Bo Dotson ENROLLED AGENT PHOTOCOMPOSING KEYBOARD OPERATOR Unavailable + [phone] Bo Dotson APRN PHOTOCOMPOSING KEYBOARD OPERATOR Unavailable + [phone] Encounter Details Date Type Department Care Team (Late st Contact Info) Description 12/27/2024 [facility] Medical Advice [address] [address] Anusha Watts, SDV PILOT/NAVIGATOR/DDS OPERATOR Social History Tobacco Use Types Packs/Day Years [...] re latives? Once a week 09/08/2024 Attends Roman [employer] Services Not on file 09/08 Active Member [...] Answer Date Recorded PHQ-2 Score 0 12/24/2024 [facility] of Occupat ional Health - Occupational Stress [...] in an abandoned building, in an overnight group home, or couch-surfing.) Yes 09/08/2024 Are you worried [...] on file Legal Sex Male 3:18 AM COAL MINER Gender Identity Not on file Sexual Orientation Not on file documented as of this encounter Plan of Treatment Upcoming Encounters Date Type Department Care Team (Late st Contact Info) Description 04/15/2025 10:30 AM CDT Office Visit [facility] [address] [place] [address] [place] [address] [place] [address] documented as of this encounter Visit Diagnoses Not on filedocumented in this encounter Additional Health Concerns Assessment Noted Time PHQ-9 Depression Total Score: 0 11/14/19 24 1:43 PM COAL MINER documented as of this encounter Care Teams Travel Registered Nurse Pacu Relationship Specialty [place] [address] [place] [address] PCP - General Family Practice 11/14/14 Tamanna Leong PA-C [address] [facility] [address] [place], [place] [address] Physician Outer Diameter Grinder Tool Physician Outer Diameter Grinder Tool 04/02/17 Samuel Holly MD [address] [facility] 394 [place], [place] [address] Urology 04/02/17 Nisreen Verduzco, RN Registered Nurse Urology 04/11/17 [place] [address] [place] [address] Assigned PCP 03/17/16 Lilia Diego APRN PHOTOCOMPOSING KEYBOARD OPERATOR [address] [place] [address] Nurse Practitioner Family Medicine 02/21/22 Bo Dotson APRN PHOTOCOMPOSING KEYBOARD OPERATOR [address] [place] [address] Nurse Practitioner Urology 09/13/24 Bo Dotson APRN PHOTOCOMPOSING KEYBOARD OPERATOR [address] [place] [address] Assigned Surgical Provider 01/02/25 documented as of this encounter
--- OUTSIDE RECORDS SUMMARY | 2025-03-11 10:22 | XMS_ITS | Encounter Summary ---
Author Organization [place] Address [address] [facility] [place] [address] Care Team Providers Care Vegetable Grower Name Role Phone Misty Flynn MD Primary Care Provider Tamanna Leong PA-C Unavailable [phone] Samuel Holly MD Unavailable [phone] Nisreen Verduzco RN Unavailable [phone] Misty Flynn MD Unavailable Misty Flynn MD Unavailable Rosa M Salvador Unavailable Unavailable Lilia Diego SAP BUSINESS ANALYST COMPUTER FORENSICS EXAMINER Unavailable Elo Phipps Unavailable Unavailable Bo Dotson SAP BUSINESS ANALYST COMPUTER FORENSICS EXAMINER Unavailable + [phone] Bo Dotson SAP BUSINESS ANALYST COMPUTER FORENSICS EXAMINER Unavailable + [phone] Encounter Details Date Type Department Care Team (Late st Contact Info) Description 04/17/2018 [facility] Medical Advice [address] [phone] Roshni Cunningham MA Social History Tobacco Use Types Packs/Day Years Used Date Smoking Tobacco: Never Smokeless Tobacco: Never Alcohol Use Standard Drinks/Week Comments Yes 0 (1 standard drink = 0.6 oz pur e alcohol) occ Sex and Gender Information Value Date Recorded Sex Assigned at Not on file Legal Sex Male 3:18 AM COMMANDING OFFICER GARAGE Gender Identity Not on file Sexual Orientation Not on file documented as of this encounter Plan of Treatment Upcoming Encounters Date Type Department Care Team (Late st Contact Info) Description 04/15/2025 10:30 AM CDT Office Visit [facility] [address] [place] [address] [place] [address] [place] [address] documented as of this encounter Visit Diagnoses Not on filedocumented in this encounter Additional Health Concerns Infection Onset Date Last Indicated Resolved Time Rule Out COVID-19 08/12/2020 08/12/2020 08/14/2020 8:47 PM CDT Assessment Noted Time PHQ-9 Depression Total Score: 0 01/22/20 18 8:00 AM CDT documented as of this encounter Care Teams Vegetable Grower Relationship Specialty Start [place] [id number] [place] [address] PCP - General Family Practice 11/14/14 [place] [address] [place], [place] [address] PCP - Assigned PCP 03/17/16 01/12/19 Tamanna Leong, EDWIN [address] [address] Physician Kiosk Sales Representative Physician Kiosk Sales Representative 04/02/17 Samuel Holly MD 420 [facility] 394 [place], [place] [address] Urology 04/02/17 Nisreen Verduzco, RN Registered Nurse Urology 04/11/17 [place] [address] [place] [address] Assigned PCP 03/17/16 Rosa M Salvador Personal Advocate & Liaison (PAL) Family Practice 06/05/20 06/11/20 Lilia Diego APRN COMPUTER FORENSICS EXAMINER [address] [place] [address] Nurse Practitioner Family Medicine 02/21/22 Elo Phipps Personal Advocate & Liaison (PAL) Family Medicine 05/29/23 07/21/23 Bo Dotson APRN COMPUTER FORENSICS EXAMINER [address] [place] [address] Nurse Practitioner Urology 09/13/24 Bo Dotson APRN COMPUTER FORENSICS EXAMINER [address] [address] [place] [address] Assigned Surgical Provider 01/02/25 documented as of this encounter
--- OUTSIDE RECORDS SUMMARY | 2025-03-11 10:23 | XMS_ITS | Encounter Summary ---
Author Organization [place] Address [address] [facility] [place] [address] Care Team Providers Care Funeral Service Apprentice Name Role Phone Misty Flynn MD Primary Care Provider Tamanna Leong PA-C Unavailable [phone] Samuel Holly MD Unavailable [phone] Nisreen Verduzco RN Unavailable [phone] Misty Flynn MD Unavailable Rosa M Salvador Unavailable Unavailable Lilia Diego PRINTING PRESSMAN SEED EXPERT Unavailable Elo Phipps Unavailable Unavailable Bo Dotson PRINTING PRESSMAN SEED EXPERT Unavailable + [phone] Bo Dotson PRINTING PRESSMAN SEED EXPERT Unavailable + [phone] Reason for Visit * Reason Onset Date Comments Refill Request 01/21/2020 [facility] wanted Encounter Details Date Type Department Care Team (Late st Contact Info) Description 01/21/2020 Telephone [facility] [address] [place] [phone] Misty Flynn MD [address] [place] [address] Refill Request ([facility] wanted) Social History Tobacco Use Types [...] re latives? Once a week 09/08/2024 Attends [employer] Services Not on file 09/08 Active Member [...] Answer Date Recorded PHQ-2 Score 0 12/24/2024 [facility] of Occupat ional Health - [...] in an abandoned building, in an overnight assisted, or couch-surfing.) Yes 09/08/2024 Are you worried [...] on file Legal Sex Male 3:18 AM BOX STRAPPER Gender Identity Not on file Sexual Orientation [...] all costs at this time. [facility] [place]. F/u at [phone]. Ok to leave detailed message. Soumya Cary Patient Press Cutter documented in this encounter Plan of Treatment Upcoming Encounters Date Type Department Care Team (Late st Contact Info) Description 04/15/2025 10:30 AM CDT Office Visit [facility] [address] [place] [phone] [place] [id number] [place] [address] documented as of this encounter Visit Diagnoses Not on filedocumented in this encounter Additional Health Concerns Infection Onset Date Last Indicated Resolved Time Rule Out COVID-19 08/12/2020 08/12/2020 08/14/2020 8:47 PM CDT Assessment Noted Time PHQ-9 Depression Total Score: 0 03/08/20 19 11:02 AM CDT documented as of this encounter Care Teams Funeral Service Apprentice Relationship Specialty Start [place] [id number] [place] [address] PCP - General Family Practice 11/14/14 Tamanna Leong PA-C [address] [address] Physician High School Academic Coach Physician High School Academic Coach 04/02/17 Samuel Holly MD [address] [place] [address] 394 [place] [address] Urology 04/02/17 Nisreen Verduzco, RN Registered Nurse Urology 04/11/17 [place] [address] [place] [address] Assigned PCP 03/17/16 Rosa M Salvador Personal Advocate & Liaison (PAL) Family Practice 06/05/20 06/11/20 Lilia Diego APRN SEED EXPERT [address] [place] [address] Nurse Practitioner Family Medicine 02/21/22 Elo Phipps Personal Advocate & Liaison (PAL) Family Medicine 05/29/23 07/21/23 Bo Dotson APRN SEED EXPERT [address] [place] [address] Nurse Practitioner Urology 09/13/24 Bo Dotson APRN SEED EXPERT [address] [place] [address] Assigned Surgical Provider 01/02/25 documented as of this encounter
--- OUTSIDE RECORDS SUMMARY | 2025-03-11 10:23 | XMS_ITS | Encounter Summary ---
Author Organization [place] Address [address] [facility] [place] [address] Care Team Providers Care Wound Nurse Name Role Phone Misty Flynn MD Primary Care Provider [phone] Tamanna Leong PA-C Unavailable [phone] Samuel Holly MD Unavailable [phone] Nisreen Verduzco RN Unavailable [phone] Misty Flynn MD Unavailable Lilia Diego CLERGY MEMBER HIGH SPEED OPERATOR Unavailable Elo Phipps Unavailable Unavailable Bo Dotson CLERGY MEMBER HIGH SPEED OPERATOR Unavailable + [phone] Bo Dotson CLERGY MEMBER HIGH SPEED OPERATOR Unavailable + [phone] Encounter Details Date Type Department Care Team (Late st Contact Info) Description 09/12/2021 [facility] Medical Advice [address] [phone] Arely Stinson, RAFFY Social History Tobacco Use [...] on file 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 [address] [place] [address] [place] [address] [place], [place] [address] documented as of this encounter Visit Diagnoses Not on filedocumented in this encounter Additional Health Concerns Assessment Noted Time PHQ-9 Depression Total Score: 0 08/23/20 21 7:02 AM CDT documented as of this encounter Care Teams Wound Nurse Relationship Specialty [place] [address] [place] [address] PCP - General Family Practice 11/14/14 Tamanna Leong PA-C [address] [address] Physician Wire Coating Operator Metal Physician Wire Coating Operator Metal 04/02/17 Samuel Holly MD [address] [place] [address] Urology 04/02/17 Nisreen Verduzco, RN Registered Nurse Urology 04/11/17 [place] [address] [place], [place] [address] Assigned PCP 03/17/16 Lilia Diego APRN HIGH SPEED OPERATOR [address] [address] Nurse Practitioner Family Medicine 02/21/22 Elo Phipps Personal Advocate & Liaison (PAL) Family Medicine 05/29/23 07/21/23 Bo Dotson APRN HIGH SPEED OPERATOR [address] [place] [address] Nurse Practitioner Urology 09/13/24 Bo Dotson APRN HIGH SPEED OPERATOR [address] [place] [address] Assigned Surgical Provider 01/02/25 documented as of this encounter
--- OUTSIDE RECORDS SUMMARY | 2025-03-11 10:23 | XMS_ITS | Encounter Summary ---
Author Organization [place] Address [address] [facility] [place] [address] Care Team Providers Care Skilled Nursing Facility Counselor Name Role Phone Misty Flynn MD Primary Care Provider [phone] Tamanna Leong PA-C Unavailable [phone] Samuel Holly MD Unavailable [phone] Nisreen Verduzco RN Unavailable [phone] Misty Flynn MD Unavailable Misty Flynn MD Unavailable Rosa M Salvador Unavailable Unavailable Lilia Diego CENTRAL STERILE TECH BENDER HELPER Unavailable Elo Phipps Unavailable Unavailable Bo Dotson CENTRAL STERILE TECH BENDER HELPER Unavailable + [phone] Bo Dotson CENTRAL STERILE TECH BENDER HELPER Unavailable + [phone] Encounter Details Date Type Department Care Team (Late st Contact Info) Description 08/09/2016 [facility] Medical Advice [address] [phone] Darrel Bell, RN Social History Tobacco Use Types Packs/Day Years Used Date Smoking Tobacco: Never Smokeless Tobacco: Never Alcohol Use Standard Drinks/Week Comments Yes 0 (1 standard drink = 0.6 oz pur e alcohol) weekends Sex and Gender Information Value Date Recorded Sex Assigned at Not on file Legal Sex Male 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 AM INDUSTRIAL CLEANER Gender Identity Not on file Sexual Orientation Not on file documented as of this encounter Plan of Treatment Upcoming Encounters Date Type Department Care Team (Late st Contact Info) Description 04/15/2025 10:30 AM CDT Office Visit [facility] [address] [place] [address] [place] [address] [place] [address] documented as of this encounter Visit Diagnoses Not on filedocumented in this encounter Additional Health Concerns Infection Onset Date Last Indicated Resolved Time Rule Out COVID-19 08/12/2020 08/12/2020 08/14/2020 8:47 PM CDT Assessment Noted Time PHQ-9 Depression Total Score: 0 07/09/20 16 7:20 AM CDT documented as of this encounter Care Teams Skilled Nursing Facility Counselor Relationship Specialty Start Date [place] [id number] [place] [address] PCP - General Family Practice 11/14/14 [place] [address] [place], [place] [address] PCP - Assigned PCP 03/17/16 01/12/19 Tamanna Leong, EDWIN [address] [address] Physician Cardiac Cath Lab Radiology Technologist Physician Cardiac Cath Lab Radiology Technologist 04/02/17 Samuel Holly MD 420 [facility] 394 [place], [place] [address] Urology 04/02/17 Nisreen Verduzco, RN Registered Nurse Urology 04/11/17 [place] [address] [place] [address] Assigned PCP 03/17/16 Rosa M Salvador Personal Advocate & Liaison (PAL) Family Practice 06/05/20 06/11/20 Lilia Diego APRN BENDER HELPER [address] [address] [place] [address] Nurse Practitioner Family Medicine 02/21/22 Elo Phipps Personal Advocate & Liaison (PAL) Family Medicine 05/29/23 07/21/23 Bo Dotson APRN BENDER HELPER [address] [place] [address] Nurse Practitioner Urology 09/13/24 Bo Dotson APRN BENDER HELPER [address] [place] [address] Assigned Surgical Provider 01/02/25 documented as of this encounter
--- OUTSIDE RECORDS SUMMARY | 2025-03-11 10:23 | XMS_ITS | Encounter Summary ---
Author Organization [place] Address [address] [facility] [place] [address] Care Team Providers Care Relief Master Name Role Phone Misty Flynn MD Primary Care Provider [phone] Tamanna Leong PA-C Unavailable [phone] Samuel Holly MD Unavailable [phone] Nisreen Verduzco RN Unavailable [phone] Misty Flynn MD Unavailable Lilia Diego APRN DEPARTMENT MANAGER Unavailable Bo Dotson APRN DEPARTMENT MANAGER Unavailable + [phone] Bo Dotson APRN DEPARTMENT MANAGER Unavailable + [phone] Encounter Details Date Type Department Care Team (Late st Contact Info) Description 03/31/2024 [facility] [place] Advice [address] [address] Annamaria Bunch, CHEMICAL ENGRAVER Social History Tobacco Use Types Packs/Day Years [...] often do you attend chur ch or sabianist services? Never 11/25/2023 Do you belong to any clubs o r organizations such as adventist groups, unions, fraternal or athletic groups, or [...] Answer Date Recorded PHQ-2 Score 0 11/14/2023 [facility] of Occupat ional Health - Occupational [...] in an abandoned building, in an overnight custodial, or couch-surfing.) Yes 11/25/2023 Are you worried [...] on file Legal Sex Male 3:18 AM JAILOR Gender Identity Not on file Sexual Orientation Not on file documented as of this encounter Plan of Treatment Upcoming Encounters Date Type Department Care Team (Late st Contact Info) Description 04/15/2025 10:30 AM CDT Office Visit [facility] [address] [place] [address] [place] [address] [place] [address] documented as of this encounter Visit Diagnoses Not on filedocumented in this encounter Additional Health Concerns Assessment Noted Time PHQ-9 Depression Total Score: 0 11/14/19 24 1:43 PM JAILOR documented as of this encounter Care Teams Relief Master Relationship Specialty Start [place] [id number] [place] [address] PCP - General Family Practice 11/14/14 Tamanna Leong PA-C [address] [place] [address] [place] [address] Physician X Ray Service Engineer Physician X Ray Service Engineer 04/02/17 Samuel Holly MD 420 [facility] 394 [place] [address] Urology 04/02/17 Nisreen Verduzco, RAFFY Registered Nurse Urology 04/11/17 [place] [address] [place], [place] [address] Assigned PCP 03/17/16 Lilia Diego APRN DEPARTMENT MANAGER [address] [place] [address] Nurse Practitioner Family Medicine 02/21/22 Bo Dotson APRN DEPARTMENT MANAGER [address] [place] [address] Nurse Practitioner Urology 09/13/24 Bo Dotson APRN DEPARTMENT MANAGER [address] [facility] [address] [place] [address] Assigned Surgical Provider 01/02/25 documented as of this encounter
--- OUTSIDE RECORDS SUMMARY | 2025-03-11 10:23 | XMS_ITS | Encounter Summary ---
Author Organization [place] Address [address] [facility] [place] [address] Care Team Providers Care Senior Game Advisor Name Role Phone Misty Flynn MD Primary Care Provider Tamanna Leong PA-C Unavailable [phone] Samuel Holly MD Unavailable [phone] Nisreen Verduzco RN Unavailable [phone] Misty Flynn MD Unavailable Lilia Diego METALS SALES REPRESENTATIVE TALK SHOW HOST Unavailable Elo Phipps Unavailable Unavailable Bo Dotson METALS SALES REPRESENTATIVE TALK SHOW HOST Unavailable + [phone] Bo Dotson METALS SALES REPRESENTATIVE TALK SHOW HOST Unavailable + [phone] Reason for Visit * Reason Onset Date Comments Patient Request for Note/Letter 09/06/2020 positive covid, needs work note Encounter Details Date Type Department Care Team (Late st Contact Info) Description 09/06/2020 [facility] Medical Advice [address] [address] Misty Flynn MD [address] [place] [address] Patient Request for Note/Letter (positive ... [...] on file Legal Sex Male 3:18 AM MANAGER GIFT Gender Identity Not on file Sexual Orientation [...] 08/29/2020. He had the test completed at [facility]. Patient has been out of work since 08/28/2020. 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 Employer is telling patient he needs to have a negative Covid test prior to returning to work. Patient contacted [facility] to get test repeated and they advised [...] [place] Registered Nurse, AMY (Patient Advocate Liason) [facility] [phone] documented in this encounter Plan of Treatment Upcoming Encounters Date Type Department Care Team (Late st Contact Info) Description 04/15/2025 10:30 AM CDT Office Visit [facility] [address] [place] [address] Misty Flynn MD [address] [place] [id number] documented as of this encounter Visit Diagnoses Not on filedocumented in this encounter Additional Health Concerns Assessment Noted Time PHQ-9 Depression Total Score: 0 06/07/20 20 7:08 AM CDT documented as of this encounter Care Teams Senior Game Advisor Relationship Specialty [place] [address] [place] [address] PCP - General Family Practice 11/14/14 Tamanna Leong PA-C [address] [place] [address] Physician Hyperion Essbase Developer Physician Hyperion Essbase Developer 04/02/17 Samuel Holly MD 420 [facility] 394 [place], [place] [address] Urology 04/02/17 Nisreen Verduzco, RN Registered Nurse Urology 04/11/17 [place] [address] [place] [address] Assigned PCP 03/17/16 Lilia Diego APRN TALK SHOW HOST [address] [place] [address] Nurse Practitioner Family Medicine 02/21/22 Elo Phipps Personal Advocate & Liaison (PAL) Family Medicine 05/29/23 07/21/23 Bo Dotson APRN TALK SHOW HOST [address] [place] [address] Nurse Practitioner Urology 09/13/24 Bo Dotson APRN TALK SHOW HOST [address] [place] [address] Assigned Surgical Provider 01/02/25 documented as of this encounter
--- OUTSIDE RECORDS SUMMARY | 2025-03-11 10:23 | XMS_ITS | Encounter Summary ---
Author Organization [place] Address [address] [facility] [place] [address] Care Team Providers Care Research Technician Name Role Phone Misty Flynn MD Primary Care Provider [phone] Tamanna Leong PA-C Unavailable [phone] Samuel Holly MD Unavailable [phone] Nisreen Verduzco RN Unavailable [phone] Misty Flynn MD Unavailable Lilia Diego ENTERPRISE SERVICES MANAGER PRINTING PRESS MACHINE OPERATOR Unavailable Bo Dotson APRN PRINTING PRESS MACHINE OPERATOR Unavailable + [phone] Bo Dotson APRN PRINTING PRESS MACHINE OPERATOR Unavailable + [phone] Encounter Details Date Type Department Care Team (Late st Contact Info) Description 01/20/2024 [facility] Medical Advice [place] Centralized Scheduling Replaced by [facility] [place] [place] [address] Terrell Rojas Social History Tobacco [...] week 11/25/2023 How often do you attend memorial healthcare or druze services? Never 11/25/2023 Do you belong to any clubs o r organizations such as taoist groups, unions, fraternal or athletic groups, or [...] Answer Date Recorded PHQ-2 Score 0 11/14/2023 [facility] of Occupat ional Health - Occupational [...] an overnight group home, or couch-surfing.) Yes 11/25/2023 Are you worried [...] on file Legal Sex Male 3:18 AM RN ON SITE Gender Identity Not on file Sexual Orientation Not on file documented as of this encounter Plan of Treatment Upcoming Encounters Date Type Department Care Team (Late st Contact Info) Description 04/15/2025 10:30 AM CDT Office Visit [facility] [address] [place] [address] [place] [address] [place] [address] documented as of this encounter Visit Diagnoses Not on filedocumented in this encounter Additional Health Concerns Assessment Noted Time PHQ-9 Depression Total Score: 0 11/14/19 24 1:43 PM RN ON SITE documented as of this encounter Care Teams Research Technician Relationship Specialty [place] [address] [place] [address] PCP - General Family Practice 11/14/14 Tamanna Leong PA-C [address] [address] Physician Hospital Wellness Coordinator Physician Hospital Wellness Coordinator 04/02/17 Samuel Holly MD [address] [place] [address] Urology 04/02/17 Nisreen Verduzco, RN Registered Nurse Urology 04/11/17 [place] [address] [place], [place] [address] Assigned PCP 03/17/16 Lilia Diego APRN PRINTING PRESS MACHINE OPERATOR [address] [place], [place] [address] Nurse Practitioner Family Medicine 02/21/22 Bo Dotson APRN PRINTING PRESS MACHINE OPERATOR [address] [place] [address] Nurse Practitioner Urology 09/13/24 Bo Dotson APRN PRINTING PRESS MACHINE OPERATOR [address] [place] [address] Assigned Surgical Provider 01/02/25 documented as of this encounter
--- OUTSIDE RECORDS SUMMARY | 2025-03-11 10:23 | XMS_ITS | Encounter Summary ---
Author Organization [place] Address [address] [facility] [place] [address] Care Team Providers Care Production Control Expert Name Role Phone Misty Flynn MD Primary Care Provider [phone] Tamanna Leong PA-C Unavailable [phone] Samuel Holly MD Unavailable [phone] Nisreen Verduzco RN Unavailable [phone] Misty Flynn MD Unavailable Lilia Diego APRN TUBE FITTER Unavailable Bo Dotson APRN TUBE FITTER Unavailable + [phone] Bo Dotson APRN TUBE FITTER Unavailable + [phone] Encounter Details Date Type Department Care Team (Late st Contact Info) Description 03/08/2024 [facility] Medical Advice [address] [address] Francesca Webb MA Social History [...] often do you attend chur ch or quaker services? 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 Gender Identity Not on file Sexual Orientation Not on file documented as of this encounter Plan of Treatment Upcoming Encounters Date Type Department Care Team (Late st Contact Info) Description 04/15/2025 10:30 AM CDT Office Visit [facility] [address] [place] [phone] [place] [address] [place] [address] documented as of this encounter Visit Diagnoses Not on filedocumented in this encounter Additional Health Concerns Assessment Noted Time PHQ-9 Depression Total Score: 0 11/14/19 24 1:43 PM BENCH REPAIR TECHNICIAN documented as of this encounter Care Teams Production Control Expert Relationship Specialty [place] [address] [place] [address] PCP - General Family Practice 11/14/14 Tamanna Leong PA-C [address] [facility] [address] [address] Physician Clinical Social Work Aide Physician Clinical Social Work Aide 04/02/17 Samuel Holly MD [address] [facility] [address] [place] [address] Urology 04/02/17 Nisreen Verduzco, RN Registered Nurse Urology 04/11/17 [place] [address] [place], [place] [id number] Assigned PCP 03/17/16 Lilia Diego APRN TUBE FITTER [address] [place], [place] [id number] Nurse Practitioner Family Medicine 02/21/22 Bo Dotson APRN TUBE FITTER [address] [place], [place] [address] Nurse Practitioner Urology 09/13/24 Bo Dotson APRN TUBE FITTER [address] [place], [place] [address] Assigned Surgical Provider 01/02/25 documented as of this encounter
--- OUTSIDE RECORDS SUMMARY | 2025-03-11 10:23 | XMS_ITS | Encounter Summary ---
Author Organization [place] Address [address] [facility] [place] [address] Care Team Providers Care Talent Coordinator Name Role Phone Misty Flynn MD Primary Care Provider [phone] Tamanna Leong PA-C Unavailable [phone] Samuel Holly MD Unavailable [phone] Nisreen Verduzco RN Unavailable [phone] Misty Flynn MD Unavailable Lilia Diego PANTRY WORKER LOGISTICS MANAGEMENT SPECIALIST Unavailable Elo Phipps Unavailable Unavailable Bo Dotson PANTRY WORKER LOGISTICS MANAGEMENT SPECIALIST Unavailable + [phone] Bo Dotson PANTRY WORKER LOGISTICS MANAGEMENT SPECIALIST Unavailable + [phone] Encounter Details Date Type Department Care Team (Late st Contact Info) Description 10/09/2022 [facility] Medical Advice [address] [phone] Kristie Thomas, RN Social History Tobacco Use Types Packs/Day Years Used Date Smoking Tobacco: Never Smokeless Tobacco: Never Alcohol Use Standard Drinks/Week Comments Yes 0 (1 standard drink = 0.6 oz pur e alcohol) moderate use PHQ-2 Answer Date Recorded PHQ-2 Score 0 09/03/2022 Sex and Gender Information Value Date Recorded Sex Assigned at Not on file Legal Sex Male 3:18 AM SOFTWARE DESIGN ENGINEER Gender Identity Not on file Sexual Orientation Not on file documented as of this encounter Plan of Treatment Upcoming Encounters Date Type Department Care Team (Late st Contact Info) Description 04/15/2025 10:30 AM CDT Office Visit [facility] [address] [place] [phone] [place] [address] [place] [address] documented as of this encounter Visit Diagnoses Not on filedocumented in this encounter Additional Health Concerns Assessment Noted Time PHQ-9 Depression Total Score: 0 09/03/20 22 7:02 AM CDT documented as of this encounter Care Teams Talent Coordinator Relationship Specialty Start [place] [id number] [place] [id number] PCP - General Family Practice 11/14/14 Tamanna Leong, PACamilaC [address] [address] Physician Speech Teacher Physician Speech Teacher 04/02/17 Samuel Holly MD [address] [place] [address] [address] [place] [address] Urology 04/02/17 Nisreen Verduzco, RN Registered Nurse Urology 04/11/17 Mist[place] Flynn [place] [address] [place] [address] Assigned PCP 03/17/16 Lilia Diego APRN LOGISTICS MANAGEMENT SPECIALIST [address] [place] [address] Nurse Practitioner Family Medicine 02/21/22 Elo Phipps Personal Advocate & Liaison (PAL) Family Medicine 05/29/23 07/21/23 Bo Dotson APRN LOGISTICS MANAGEMENT SPECIALIST [address] [address] Nurse Practitioner Urology 09/13/24 Bo Dotson APRN LOGISTICS MANAGEMENT SPECIALIST [address] [place] [address] Assigned Surgical Provider 01/02/25 documented as of this encounter
--- OUTSIDE RECORDS SUMMARY | 2025-03-11 10:23 | XMS_ITS | Encounter Summary ---
Author Organization [place] Address [address] [facility] [place] [address] Care Team Providers Care Commercial Loan Specialist Name Role Phone Misty Flynn MD Primary Care Provider Tamanna Leong PA-C Unavailable Samuel Holly MD Unavailable [phone] Nisreen Verduzco RN Unavailable [phone] Misty Flynn MD Unavailable Misty Flynn MD Unavailable Rosa M Salvador Unavailable Unavailable Lilia Diego LOSS PREVENTION INVESTIGATOR HYDRO OPERATOR Unavailable Elo Phipps Unavailable Unavailable Bo Dotson LOSS PREVENTION INVESTIGATOR HYDRO OPERATOR Unavailable [phone] Bo Dotson LOSS PREVENTION INVESTIGATOR HYDRO OPERATOR Unavailable [phone] Reason for Visit * Reason Onset Date Comments Refill Request 12/16/2017 amLODIPine (NORV ASC) 10 MG tablet Encounter Details Date Type Department Care Team (Late st Contact Info) Description 12/16/2017 Refill [facility] [address] [place] [phone] [place] [address] [place] [address] Refill Request (amLODIPine (NORVASC) 10 MG tablet) Social History Tobacco Use Types Packs/Day Years Used Date Smoking Tobacco: Never Smokeless Tobacco: Never Alcohol Use Standard Drinks/Week Comments Yes 0 (1 standard drink = 0.6 oz pur e alcohol) occ Sex and Gender Information Value Date Recorded Sex Assigned at Not on file Legal Sex Male 3:18 AM EDGE SANDER Gender Identity Not on file Sexual Orientation Not on file documented as of this encounter Miscellaneous Notes * Telephone Encounter - Darrel Bell RN - 12/18/2017 12:21 PM CST Per communication preferences only MyChart checked. [email or web address] message sent. Darrel Bell RN SANDER * Telephone Encounter - Misty Flynn MD - 12/17/2017 12:15 PM CST Recommend a follow up in 2 to 3 months Misty Flynn MD [facility] [phone] SANDER * Telephone Encounter - Darrel Bell RN - 12/17/2017 10:11 AM CST Routing refill request to provider for review/approval because: Labs not current: Darrel Bell RN SANDER * Telephone Encounter - Kalani Mota - [...] - Patient is age 18 or older SANDER documented in this encounter Plan of Treatment Upcoming Encounters Date Type Department Care Team (Late st Contact Info) Description 04/15/2025 10:30 AM CDT Office Visit [facility] [address] [place] [phone] [place] [id number] [place] [address] documented as of this encounter Visit Diagnoses Diagnosis Benign essential hypertension Essential hypertension, benign documented in this encounter Additional Health Concerns Infection Onset Date Last Indicated Resolved Time Rule Out COVID-19 08/12/2020 08/12/2020 08/14/2020 8:47 PM CDT Assessment Noted Time PHQ-9 Depression Total Score: 0 03/04/20 17 7:07 AM CDT documented as of this encounter Care Teams Commercial Loan Specialist Relationship Specialty [place] [address] [place] [address] PCP - General Family Practice 11/14/14 [place] [address] [place] [address] PCP - Assigned PCP 03/17/16 01/12/19 Tamanna Leong PA-C [address] [place] [address] [place] [address] Physician Associate Professor Of Biblical Studies Physician Associate Professor Of Biblical Studies 04/02/17 Samuel Holly MD [address] [facility] [address] [place] [address] Urology 04/02/17 Nisreen Verduzco, RN Registered Nurse Urology 04/11/17 [place] [address] [place] [address] Assigned PCP 03/17/16 Rosa M Salvador Personal Advocate & Liaison (PAL) Family Practice 06/05/20 06/11/20 Lilia Diego APRN HYDRO OPERATOR [address] [place] [address] Nurse Practitioner Family Medicine 02/21/22 Elo Phipps Personal Advocate & Liaison (PAL) Family Medicine 05/29/23 07/21/23 Bo Dotson APRN HYDRO OPERATOR [address] [facility] [address] [place] [address] Nurse Practitioner Urology 09/13/24 Bo Dotson APRN HYDRO OPERATOR [address] [facility] [address] [place] [address] Assigned Surgical Provider 01/02/25 documented as of this encounter
--- OUTSIDE RECORDS SUMMARY | 2025-03-11 10:23 | XMS_ITS | Clinical Summary ---
Author Organization [facility] Address [address] [place] [address] Care Team Providers Care Medical Delivery Driver Name Role Phone Misty Flynn MD Primary Care Provider [phone] Allergies No known active allergies Medications SERTRALINE [...] on file Legal Sex Male 6:33 AM AUDIOVISUAL LIBRARIAN Gender Identity Not on file Sexual Orientation [...] topic Insurance [address] [place] [id number] [place] [id number] Advance Directives * Full Code (Latest Code Status on File) Date Activated Date Inactivated Comments 10/13/2008 8:06 AM 10/13/2008 3:49 PM Care Teams Medical Delivery Driver Relationship Specialty [place] [address] [place] [address] PCP - General Family Practice 03/30/19
--- OUTSIDE RECORDS SUMMARY | 2025-03-11 10:23 | XMS_ITS | Encounter Summary ---
Author Organization [place] Address [address] [facility] [place] [address] Care Team Providers Care Tobacco Drying Machine Operator Name Role Phone Misty Flynn MD Primary Care Provider [phone] Tamanna Leong PA-C Unavailable [phone] Samuel Holly MD Unavailable [phone] Nisreen Verduzco RN Unavailable [phone] Misty Flynn MD Unavailable Lilia Diego SIGNAL TOWER DIRECTOR SENIOR ASIC DESIGN ENGINEER Unavailable Elo Phipps Unavailable Unavailable Bo Dotson SIGNAL TOWER DIRECTOR SENIOR ASIC DESIGN ENGINEER Unavailable + [phone] Bo Dotson SIGNAL TOWER DIRECTOR SENIOR ASIC DESIGN ENGINEER Unavailable + [phone] Encounter Details Date Type Department Care Team (Late st Contact Info) Description 01/04/2022 [facility] Medical Advice [address] [phone] Anusha Watts, TRAPPER ANIMAL Social History Tobacco Use Types Packs/Day Years [...] on file Legal 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 Male 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 DRAPERY WORKER Gender Identity Not on file Sexual Orientation Not on file documented as of this encounter Plan of Treatment Upcoming Encounters Date Type Department Care Team (Late st Contact Info) Description 04/15/2025 10:30 AM CDT Office Visit [facility] [address] [place] [phone] [place] [address] [place] [address] documented as of this encounter Visit Diagnoses Not on filedocumented in this encounter Additional Health Concerns Assessment Noted Time PHQ-9 Depression Total Score: 0 08/23/20 7:02 AM CDT documented as of this encounter Care Teams Tobacco Drying Machine Operator Relationship Specialty [place] [address] [place] [address] PCP - General Family Practice 11/14/14 Tamanna Leong, PA-C [address] [facility] [address] [place] [address] Physician Financial Representative Physician Financial Representative 04/02/17 Samuel Holly MD [address] [facility] [address] [place] [address] Urology 04/02/17 Nisreen Verduzco, RN Registered Nurse Urology 04/11/17 [place] [address] [place], [place] [address] Assigned PCP 03/17/16 Lilia Diego APRN SENIOR ASIC DESIGN ENGINEER [address] [place] [address] Nurse Practitioner Family Medicine 02/21/22 Elo Phipps Personal Advocate & Liaison (PAL) Family Medicine 05/29/23 07/21/23 Bo Dotson APRN SENIOR ASIC DESIGN ENGINEER [address] [place] [address] Nurse Practitioner Urology 09/13/24 Bo Dotson APRN SENIOR ASIC DESIGN ENGINEER [address] [address] Assigned Surgical Provider 01/02/25 documented as of this encounter
== END 2025-03-11 11:00 | disposition home or self-care (01) ==
PROVIDERS: Emergency Provider Internal Medicine
DX: S39.011A Strain of muscle, fascia and tendon of abdomen, initial encounter (principal); X50.0XXA Overexertion from strenuous movement or load, initial encounter
CPT/HCPCS: 72100; 99283

== ENCOUNTER 2025-07-07 10:14 | Emergency (ER) | payer OTHER, SELFPAY ==
--- OUTSIDE RECORDS SUMMARY | 2025-07-07 10:17 | XMS_ITS | Encounter Summary ---
Author Organization [place] Address [address] [facility] [place] [address] Care Team Providers Care Director Advanced Name Role Phone Misty Flynn MD Primary Care Provider [phone] Tamanna Leong PA-C Unavailable [phone] Samuel Holly MD Unavailable [phone] Nisreen Verduzco RN Unavailable [phone] Misty Flynn MD Unavailable Lilia Diego APRN ELECTRIC ENGINE MECHANIC Unavailable Bo Dotson RESTORATION ECOLOGIST ELECTRIC ENGINE MECHANIC Unavailable [phone] Bo Dotson APRN ELECTRIC ENGINE MECHANIC Unavailable + [phone] Samuel Holly MD Unavailable [phone] Reason for Visit * Reason Onset Date Comments Sinus Problem 07/05/2025 Encounter Details Date Type Department Care Team (Late st Contact Info) Description 07/05/2025 [facility] Medical Advice [facility] [address] [place] [phone] [place] [address] [place] [address] Sinus Problem Social History Tobacco Use Types Packs/Day Years Used Date Smoking Tobacco: Never Smokeless Tobacco: Never Alcohol Use Standard Drinks/Week Comments Yes 0 (1 standard drink = 0.6 oz pur e alcohol) moderate use Social Connection and Isolation Panel [NHANES] A nswer Date Recorded Frequency of Communication with Friends and Fami ly Not on file 04/15/2025 How often do you get together with friends or re latives? Once a week 04/15/2025 Attends Latter Day Services Not on file 04/15 Active Member of Clubs or Organizations Not on f ile 04/15/2025 Attends Club or Organization Meetings Not on prabhu e 04/15/2025 Marital Status Not on file 04/15/2025 AUDIT-C Answer Date Recorded Q1: How often do you have a drink containing alc ohol? 2-4 times a month 11/25/2023 Q2: How many drinks containi ng alcohol do you have on a typical day when you are drinking? 1 or 2 11/25/2023 Frequency of Binge Drinking Not on file 11/10 PHQ-2 Answer Date Recorded PHQ-2 Score 0 12/24/2024 [facility] - Occupational Stress Questionnaire Answer Date Recorded Do you feel stress - tense, restless, nervous, or anxious, or unable to sleep at night because your mind is troubled all the time - these days? Not at all 04/15/2025 Exercise Vital Sign Answer Date Recorde d On average, how many days pe r week do you engage in moderate to strenuous exercise (like a brisk walk)? 4 days 04/15/2025 On average, how many minutes do you engage in exercise at this level? 30 min 04/15/2025 Adolescent Education Answer Date Record ed Getting School Help Needed Not on file 08/24 Food Insecurity Answer Date Recorded Within the past 12 months, d id you worry that your food would run out before you got money to buy more? No 04/15/2025 Within the past 12 months, d id the food you bought just not last and you didn t have money to get more? No 04/15/2025 Housing Stability Answer Date Recorded Do you have housing? (Housin g is defined as stable permanent housing and does not include staying outside in a car, in a tent, in an abandoned building, in an overnight halfway, or couch-surfing.) Yes 04/15/2025 Are you worried about losing your housing? No 04/15/2025 Financial Resource Strain Answer Date R ecorded Within the past 12 months, h ave you or your family members you live with been unable to get utilities (heat, electricity) when it was really needed? No 04/15/2025 Transportation Needs Answer Date Record ed Within the past 12 months, h as lack of transportation kept you from medical appointments, getting your medicines, non-medical meetings or appointments, work, or from getting things that you need? No 04/15/2025 Interpersonal Safety Answer Date Record ed Do you feel physically and e motionally safe where you currently live? Yes 04/15/2025 Within the past 12 months, h ave you been hit, slapped, kicked or otherwise physically hurt by someone? No 04/15/2025 Within the past 12 months, h ave you been humiliated or emotionally abused in other ways by your partner or ex-partner? No 04/15/2025 Sex and Gender Information Value Date Recorded Sex Assigned at Not on file Legal Sex Male 3:18 AM RETAIL SALES REPRESENTATIVE Gender Identity Not on file Sexual Orientation Not on file documented as of this encounter Miscellaneous Notes * Telephone Encounter - Norma Solis RN - 07/05/2025 10:15 AM CDT See my chart - Evisit recommended Norma Solis Registered Nurse [facility] documented in this encounter Plan of Treatment Upcoming Encounters Date Type Department Care Team (Late st Contact Info) Description 08/10/2025 2:00 PM CDT Office Visit [facility] [address] [place] [phone] [place] Flynn [place] [address] [place] [address] 08/11/2025 1:20 PM CDT Office Visit [facility] Urology [place] [address] [facility] [address] [place] [address] Samuel Holly MD [address] [place] [address] [address] [place] [address] documented as of this encounter Visit Diagnoses Not on filedocumented in this encounter Additional Health Concerns Assessment Noted Time PHQ-9 Depression Total Score: 0 11/14/19 1:43 PM RETAIL SALES REPRESENTATIVE documented as of this encounter Care Teams Director Advanced Relationship Specialty [place] [address] [place] [address] PCP - General Family Practice 11/14/14 Tamanna Leong PA-C [address] [place] [address] Physician Mink Rancher Physician Mink Rancher 04/02/17 Samuel Holly MD 420 [facility] [address] [place] [address] Urology 04/02/17 Nisreen Verduzco, RN Registered Nurse Urology 04/11/17 [place] [address] [place] [address] Assigned PCP 03/17/16 Lilia Diego APRN ELECTRIC ENGINE MECHANIC [address] [place] [address] Nurse Practitioner Family Medicine 02/21/22 Bo Dotson APRN ELECTRIC ENGINE MECHANIC [address] [place] [address] Nurse Practitioner Urology 09/13/24 Bo Dotson APRN ELECTRIC ENGINE MECHANIC [address] [place] [address] Assigned Surgical Provider 01/02/25 Samuel Holly MD [address] [place] [address] [address] [place], [place] [address] Urology 06/28/25 documented as of this encounter
--- OUTSIDE RECORDS SUMMARY | 2025-07-07 10:17 | XMS_ITS | Clinical Summary ---
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 Active Encounters Date Type Department Care Team Description 06/30/2025 8:09 PM CDT - 06/30/2025 10:23 PM CDT Emergency [facility] [address] [place] [address] Zenaida Carter PA Nonintractable headache, unspecified chronicity pattern, unspecified headache type (Primary Dx) Discharge Disposition: Home Self Care 06/30/2025 Travel from Last 3 Months Social History Tobacco Use Types Packs/Day Years Used Date Smoking Tobacco: Never Smokeless Tobacco: Never Alcohol Use Standard Drinks/Week Comments Yes 0 (1 standard drink = 0.6 oz pur e alcohol) Interpersonal Safety Answer Date Record ed Are you being hit, kicked, p ushed or yelled at (see row info)? 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 Gender Identity Not on file Sexual Orientation Not on file Obstetrics History Last Filed Vital Signs Vital Sign Reading Time Taken Comments Blood Pressure 143/101 06/30/2025 10:00 PM CDT Pulse 82 06/30/2025 6:55 PM CDT Temperature 36.7 C (98 F) 06/30/2025 6:55 PM CDT Respiratory Rate 18 06/30/2025 6:55 PM CDT Oxygen Saturation 99% 06/30/2025 6:55 PM CDT Inhaled Oxygen Concentration - - Weight 109.3 kg (241 lb) 06/30/2025 6:55 PM CDT Height 182.9 cm (6') 06/30/2025 6:55 PM CDT Body Mass Index 32.69 06/30/2025 6:55 PM CDT Plan of Treatment Health Maintenance Due Date Last Done Comments Tetanus booster 1992 Depression screening for age 12+ 1993 HIV for age 15-65 1996 BMI (ht and wt on same day) for age 18+ 1999 Hepatitis C screening for ag e 18-79 1999 Hepatitis B series for 19+ ( 1 of 3 - 19+ 3-dose series) 2000 Lipids for age 35-44 2016 COVID-19 vaccine series ( season) 2024 03/15/2021, 02/15/2021 Influenza Vaccine (#1) 2025 Pneumococcal series for age 6-49 Aged Out No longer eligible b ased on patient's age to complete this topic Procedures Procedure Name Priority Date/Time Associated Diagnosis Comments COVID-19 MOLECULAR Today 06/30/2025 9: 38 PM CDT CARBOXYHEMOGLOBIN STAT 06/30/2025 9:[address] HEAD BRAIN WO STAT 06/30/2025 9:01 PM CDT CBC WITH AUTO DIFFERENTIAL STAT 06/30/2025 8:47 PM CDT LYME SCREEN W/REFLEX STAT 06/30/2025 8:47 PM CDT HETEROPHILE STAT 06/30/2025 8:47 PM CDT SEDIMENTATION RATE STAT 06/30/2025 8: 47 PM CDT C-REACTIVE PROTEIN STAT 06/30/2025 8: 47 PM CDT BASIC METABOLIC PANEL STAT 06/30/2025 8:47 PM CDT CBC WITH AUTO DIFFERENTIAL STAT 06/30/2025 8:47 PM CDT from Last 3 Months Results * COVID-19 MOLECULAR (06/30/2025 9:38 PM CDT) [facility] COVID 19 [facility] MOLECULAR Not detected Not detected 06/30/2025 10:04 PM CDT [facility]ING [facility]ATORY [facility] 06/30/2025 10:04 PM CDT [facility] Comment:Specimen submitted t o [facility] for testing. Other SPECIMEN FROM NASOPHARYNGEAL STRUCTURE / Unknown Non-Blood / Unknown 06/30/2025 9:38 PM CDT 06/30/2025 9:42 PM CDT us Zenaida MORRISON MICROBIOLOGY Final Result [facility] [address] [place] [address] * (ABNORMAL) CARBOXYHEMOGLOBIN (06/30/2025 9:26 PM CDT) [facility] CARBOXYHEMOGLOBIN <0.3(L) 0.5 - 1.5 % 06/30/2025 9:42 PM CDT [facility] Comment:Outside Reportable R anthony Blood BLOOD SPECIMEN / Unknown Butterfly / Unknown 06/30/2025 9:26 PM CDT 06/30/2025 9:30 PM CDT Narrative [facility] - 06/30/2025 9:42 PM CDT Expected Values for Carboxyhemoglobin: Non-Smoker (0.0-3.0) Smoker 1-2 packs/day (0.0-5.0) Heavy Smoker >2 packs/day (0.0-9.0) Toxic Level (> 20.0) us Zenaida MORRISON CHEMISTRY Final Result [facility] [address] [place] [address] * CT HEAD BRAIN WO (06/30/2025 9:01 PM CDT) Anatomical Region Laterality Modality HEAD, BRAIN Computed Tomogra phy 06/30/2025 9:12 PM CDT Impressions 06/30/2025 9:12 PM CDT 1. No evidence of acute infarction, intracranial hemorrhage, or mass-effect seen. Please note that all CT scans at this facility use dose modulation, iterative reconstruction, and/or weight-based dosing when appropriate to reduce radiation dose to as low as reasonably achievable. Dictated by: Costa Valdovinos MD @ 06/30/2025 21:12:56 (Electronically Signed) Narrative 06/30/2025 9:12 PM CDT For Patients: As a result of the Century Cures Act, medical imaging exams and procedure reports are released immediately into your electronic medical record. You may view this report before your referring provider. If you have questions, please contact your health care provider. INDICATION: Left sided headache TECHNIQUE: CT Head without i.v. contrast. Coronal and sagittal reformats were obtained. DLP-DOSE: 770.2 mGycm COMPARISON: None FINDINGS: CSF space: The ventricles are normal for age. Brain: No evidence of mass, acute infarction or hemorrhage is seen. No mass- effect or midline shift is seen. The brain parenchyma is otherwise normal in appearance with preservation of the epps-white matter junction. Calvarium: The visualized paranasal sinuses are well aerated. The mastoid air cells are clear. The visualized orbits are grossly unremarkable. The calvarium is unremarkable in appearance with no fractures identified. Procedure Note Costa Valdovinos MD - 06/30/2025 For Patients: As a result of the Cures Act, medical imagingexams and procedure reports are released immediately into your electronicmedical record. You may view this report before your referring provider.If you have questions, please contact your health care provider. INDICATION: Left sided headache TECHNIQUE: CT Head without i.v. contrast. Coronal and sagittal reformatswere obtained. DLP-DOSE: 770.2 mGycm COMPARISON: None FINDINGS: CSF space: The ventricles are normal for age. Brain: No evidence of mass, acute infarction or hemorrhage is seen. Nomass- effect or midline shift is seen. The brain parenchyma is otherwisenormal in appearance with preservation of the epps-white matter junction. Calvarium: The visualized paranasal sinuses are well aerated. The mastoidair cells are clear. The visualized orbits are grossly unremarkable. Thecalvarium is unremarkable in appearance with no fractures identified. IMPRESSION: 1. No evidence of acute infarction, intracranial hemorrhage, ormass-effect seen. Please note that all CT scans at this facility use dose modulation,iterative reconstruction, and/or weight-based dosing when appropriate toreduce radiation dose to as low as reasonably achievable. Dictated by: Costa Valdovinos MD @ 06/30/2025 21:12:56 (Electronically Signed) Zenaida MORRISON CT Final Result * SEDIMENTATION RATE (06/30/2025 8:47 PM CDT) SEDIMENTATION RATE 12 <15 mm/hr 2024 9:14 PM CDT [facility] Blood BLOOD SPECIMEN / Unknown Venipuncture / Unknown 06/30/2025 8:47 PM CDT 06/30/2025 9:09 PM CDT Zenaida MORRISON HEMATOLOGY Final Result [facility] [address] [facility] [address] * (ABNORMAL) CBC WITH AUTO DIFFERENTIAL (06/30/2025 8:47 PM CDT) WHITE BLOOD COUNT 11.3(H) 4.5 - 11.0 thou/cu mm 06/30/2025 9:12 PM CDT [facility] RED BLOOD COUNT 4.63 4.30 - 5.90 mil/cu mm 06/30/2025 9:12 PM T [facility] HEMOGLOBIN 14.1 13.5 - 17.5 g/dL 06/30/2025 9:12 PM [facility] HEMATOCRIT 40.5 37.0 - 53.0 % 06/30/2025 9:12 PM [facility] MCV 88 80 - 100 fL 06/30/2025 9:12 PM [facility] MCH 30.5 26.0 - 34.0 pg 06/30/2025 9:12 PM [facility] MCHC 34.8 32.0 - 36.0 g/dL 06/30/2025 9:12 PM [facility] RDW 12.4 11.5 - 15.5 % 06/30/2025 9:12 PM [facility] PLATELET COUNT 300 140 - 440 thou/cu mm 06/30/2025 9:12 PM [facility] MPV 8.4 6.5 - 11.0 fL 06/30/2025 9:12 PM [facility] % NEUT 69.9 % 06/30/2025 9:12 PM [facility] % LYMPH 21.4 % 06/30/2025 9:12 PM [facility] % MONO 6.1 % 06/30/2025 9:12 PM [facility] % EOS 2.2 % 06/30/2025 9:12 PM [facility] % BASO 0.4 % 06/30/2025 9:12 PM [facility] ABSOLUTE NEUTROPHILS 7.9(H) 1.7 - 7.0 thou/cu mm 06/30/2025 9:12 PM CDT [facility] ABSOLUTE LYMPHOCYTES 2.4 0.9 - 2.9 thou/cu mm 06/30/2025 9:12 PM CDT [facility] ABSOLUTE MONOCYTES 0.7 <0.9 thou/cu mm 06/30/2025 9:12 PM CDT [facility] ABSOLUTE EOSINOPHILS 0.3 <0.5 thou/cu mm 06/30/2025 9:12 PM CDT [facility] ABSOLUTE BASOPHILS 0.0 <0.3 thou/cu mm 06/30/2025 9:12 PM CDT [facility] Blood BLOOD SPECIMEN / Unknown Venipuncture / Unknown 06/30/2025 8:47 PM CDT 06/30/2025 9:09 PM CDT Zenaida MORRISON HEMATOLOGY Final Result [facility] [address] [place] [address] * LYME SCREEN W/REFLEX (06/30/2025 8:47 PM CDT) [facility] LYME SCREEN W/REFLEX Negative Negative 07/04/2025 8:44 AM CDT [facility] Comment: No laboratory evidence of infection with B. burgdorferi (Lyme disease). Negative results may occur in patients recently infected (less than or equal to 14 days) with B. burgdorferi. If recent infection is suspected, repeat testing on a new sample collected in 7-14 days is recommended. Blood BLOOD SPECIMEN / Unknown Venipuncture / Unknown 06/30/2025 8:47 PM CDT 06/30/2025 9:42 PM CDT us Zenaida MORRISON SEND OUTS Final Result [facility] [address] [place] [address], [place] * HETEROPHILE (06/30/2025 8:47 PM CDT) HETEROPHILE Negative Negative 06/30/2025 9:12 PM CDT [facility] Blood BLOOD SPECIMEN / Unknown Venipuncture / Unknown 06/30/2025 8:47 PM CDT 06/30/2025 9:12 PM CDT Zenaida MORRISON HEMATOLOGY Final Result [facility] [address] [place] [address] * (ABNORMAL) C-REACTIVE PROTEIN (06/30/2025 8:47 PM CDT) Pathologist [facility] C-REACTIVE PROTEIN 1.3(H) <0.5 mg/dL 06/30/2025 9:23 PM CDT [facility] Blood BLOOD SPECIMEN / Unknown Venipuncture / Unknown 06/30/2025 8:47 PM CDT 06/30/2025 9:10 PM CDT Zenaida MORRISON CHEMISTRY Final Result [facility] [address] [place] [address] * BASIC METABOLIC PANEL (06/30/2025 8:47 PM CDT) SODIUM 136 136 - 145 mmol/L 06/30/2025 9:23 PM CDT [facility] POTASSIUM 4.0 3.5 - 5.1 mmol/L 06/30/2025 9:23 PM CDT [facility] CHLORIDE 100 98 - 107 mmol/L 06/30/2025 9:23 PM CDT [facility] CO2,TOTAL 25 22 - 29 mmol/L 06/30/2025 9:23 PM CDT [facility] ANION GAP 11 5 - 18 06/30/2025 9:23 PM CDT [facility] GLUCOSE 90 70 - 99 mg/dL 06/30/2025 9:23 PM [facility] CALCIUM 9.2 8.8 - 10.4 mg/dL 06/30/2025 9:23 PM T [facility] Comment: Reference ranges for this test were updated on 09/14/2024 to reflect our healthy population more accurately. Reference range changes are not retroactively applied to results, but previous results using the same methodology can be interpreted in the context of the new reference range. BUN 10 6 - 20 mg/dL 06/30/2025 9:23 PM [facility] CREATININE 1.04 0.70 - 1.20 mg/dL 06/30/2025 9:23 PM [facility] BUN/CREAT RATIO 10 10 - 20 9:23 PM [facility] eGFR >90 >90 mL/min/1.7 3m2 06/30/2025 9:23 PM [facility] Comment:As of 2022, eG FR is calculated by the CKD-EPI creatinine equation without race adjustment. eGFR can be influenced by muscle mass, exercise, and diet. The reported eGFR is an estimation only and is only applicable if the renal function is stable. Blood BLOOD SPECIMEN / Unknown Venipuncture / Unknown 06/30/2025 8:47 PM CDT 06/30/2025 9:10 PM CDT Zenaida MORRISON CHEMISTRY Final Result [facility] [address] [facility] [id number] from Last 3 Months Insurance [address] [place] [id number] [place] [id number] [place] [id number] BLUE ADVANTAGE [facility] Advance Directives * Full Code (Latest Code Status on File) Date Activated Date Inactivated Comments 10/13/2008 8:06 AM 10/13/2008 3:49 PM Care Teams Plant Maintenance Worker Relationship Specialty [place] [address] [place] [address] PCP - General Family Practice 03/30/19
--- OUTSIDE RECORDS SUMMARY | 2025-07-07 10:17 | XMS_ITS | Encounter Summary ---
Author Organization [place] Address [address] [facility] [place] [address] Care Team Providers Care Press Tender Star Signal Name Role Phone Misty Flynn MD Primary Care Provider [phone] Tamanna Leong PA-C Unavailable [phone] Samuel Holly MD Unavailable [phone] Nisreen Verduzco RN Unavailable [phone] Misty Flynn MD Unavailable Lilia Diego PROJECTION PRINTER MUSIC INDUSTRY INTERN Unavailable Elo Phipps Unavailable Unavailable Bo Dotson PROJECTION PRINTER MUSIC INDUSTRY INTERN Unavailable + [phone] Bo Dotson APRN MUSIC INDUSTRY INTERN Unavailable + [phone] Samuel Holly MD Unavailable [phone] Encounter Details Date Type Department Care Team (Late st Contact Info) Description 01/04/2022 MyC Medical Advice [address] [phone] Anusha Watts, SPORTS SPECIALIST Social History Tobacco Use Types Packs/Day Years [...] on file 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 Gender Identity Not on file Sexual Orientation Not on file documented as of this encounter Plan of Treatment Upcoming Encounters Date Type Department Care Team (Late st Contact Info) Description 08/10/2025 2:00 PM CDT Office Visit [facility] [address] [place] [phone] [place] [address] [place] [address] 08/11/2025 1:20 PM CDT Office Visit [facility] Urology [address] [place] [phone] Samuel Holly MD [address] [id number] documented as of this encounter Visit Diagnoses Not on filedocumented in this encounter Additional Health Concerns Assessment Noted Time PHQ-9 Depression Total Score: 0 08/23/20 21 7:02 AM CDT documented as of this encounter Care Teams Press Tender Star Signal Relationship Specialty [place] [address] [place] [address] PCP - General Family Practice 11/14/14 Tamanna Leong PA-C [address] [address] Physician Performance Makeup Artist Physician Performance Makeup Artist 04/02/17 Samuel Holly MD [address] [address] Urology 04/02/17 Nisreen Verduzco, RN Registered Nurse Urology 04/11/17 [place] [address] [place] [address] Assigned PCP 03/17/16 Lilia Diego APRN MUSIC INDUSTRY INTERN [address] [place] [address] Nurse Practitioner Family Medicine 02/21/22 Elo Phipps Personal Advocate & Liaison (PAL) Family Medicine 05/29/23 07/21/23 Bo Dotson APRN MUSIC INDUSTRY INTERN [address] [facility] [address] [place] [address] Nurse Practitioner Urology 09/13/24 Bo Dotson APRN MUSIC INDUSTRY INTERN [address] [facility] [address] [place], [place] [id number] Assigned Surgical Provider 01/02/25 Samuel Holly MD [address] [facility] [address] [place] [address] Urology 06/28/25 documented as of this encounter
--- OUTSIDE RECORDS SUMMARY | 2025-07-07 10:17 | XMS_ITS | Clinical Summary ---
Author Organization [place] Address [address] [facility] [place] [address] Care Team Providers Care Metabolic Specialist Name Role Phone Misyt Flynn MD Primary Care Provider [phone] Tamanna Leong PA-C Unavailable [phone] Samuel Holly MD Unavailable [phone] Nisreen Verduzco RN Unavailable [phone] Misty Flynn MD Unavailable Lilia Diego MANUFACTURING LAB TECHNICIAN CLINICAL CARE LEADER Unavailable Bo Dotson MANUFACTURING LAB TECHNICIAN CLINICAL CARE LEADER Unavailable [phone] Bo Dotson MANUFACTURING LAB TECHNICIAN CLINICAL CARE LEADER Unavailable [phone] Samule Holly MD Unavailable [phone] Allergies Active Allergy Reactions Criticality Noted Date Comments Doxycycline Nausea and Vomiting 03/13/2016 Ketorolac Tromethamine Rash Low 03/24/2017 Seasonal Allergies 07/08/2013 Tramadol Itching 03/24/2017 Medications fluticasone (FLONASE) 50 MCG/ACT nasal sprayIndications: Seasonal allergic rhinitis, unspecified trigger [place] 1-2 sprays into both nostrils daily 48 g 3 4 Active oxyCODONE-acetami nophen (PERCOCET) 7.5-325 MG per tablet Take 1 tablet by mouth every 3 hours 4 Active sildenafil (VIAGRA) 50 MG tabletIndications :Erectile dysfunction, unspecified erectile dysfunction type Take 1 tablet (50 mg) by mouth daily as needed (sexual activity). 30 tablet 4 5 Active losartan (COZAAR) 50 MG tabletIndications :Benign essential hypertension Take 1 tablet (50 mg) by mouth daily. 90 tablet 3 5 Active Active Problems Problem Noted Date Diagnosed [...] pain in testicle 07/18/2021 Assessment & Plan (04/15/2025 10:26 AM CDT): Pt has chronic pain in the Left testicle more than Right, and he wishes to discuss with Urologist about possible reversal of his vasectomy as the pain started afer the procedure. This has been going since 2016, Assessment & Plan (09/08/2024 11:32 AM CDT): Pt has chronic pain in the Left testicle more than Right, and he wishes to discuss with Urologist about possible reversal of his vasectomy as the pain started afer the procedure. This has been going since 2016, and he was intermediate (current) use of opiate analgesic 06/2021 Class 1 obesity due to exces s calories without serious comorbidity with body mass index (BMI) of 33.0 to 33.9 in adult 07/18/2021 Second degree AV block 04/17/2018 Overview (09/03/2022): Noticed on Zio patch, intermittent at night time. Acute recurrent maxillary sinusitis 01/20/2018 Assessment & Plan (04/15/2025 10:29 AM CDT): Continue on fluticasone only the spring time and fall. Benign essential hypertension 2016 Assessment & Plan (04/15/2025 10:27 AM CDT): Controlled on Losartan 50 mg daily, check BMP. Assessment & Plan (09/08/2024 11:33 AM CDT): [...] pain 07/18/2021 09/08/[address] eliza gregg monitoring 07/18/2021 09/08/2024 Causalgia of left lower [...] Total Score(s): No flowsheet data found. Last [facility] website verification: done on 11/08/2016 [email or web address] Injury of foot 01/05/2016 09/03/2022 Mild major depression 03/02/20152021 HTN, goal below 140/90 12/10/201312/10 Migraine headache 07/07/2013 09/08/2024 Mild major depression 09/12/20112012 CARDIOVASCULAR SCREENING; LD L GOAL LESS THAN 160 09/09/2010 07/18/2021 Essential hypertension, benign 09/04/2007 09/12/2011 Encounters Date Type Department Care Team Description 07/05/2025 MyC Medical Advice [address] [address] Misty Flynn MD Sinus Problem 04/16/2025 Results Follow-Up [address] [address] Misty Flynn MD Subj: Message about your results 04/15/2025 10:30 AM CDT Office Visit [address] [address] Misty Flynn MD Routine general medical examination at a health care facility (Primary Dx); Chronic pain in testicle; Benign essential hypertension; Acute recurrent maxillary sinusitis; Erectile dysfunction, unspecified erectile dysfunction type 04/15/2025 Travel from Last 3 Months Immunizations Immunization Administration Dates Next Due COVID-19 Monovalent 18+ [...] re latives? 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 Gender Identity Not on file Sexual Orientation Not on file Last Filed Vital Signs Vital Sign Reading Time Taken Comments Blood Pressure 129/83 04/15/2025 10:17 AM CDT Pulse 71 04/15/2025 10:15 AM CDT Temperature 36.7 C (98.1 F) 04/15/2025 10:15 AM CDT Respiratory Rate 12 04/15/2025 10:1 5 AM CDT Oxygen Saturation 95% 04/15/2025 10: 15 AM CDT Inhaled Oxygen Concentration - - Weight 113.7 kg (250 lb 9.6 oz) 025 10:15 AM CDT Height 182.9 cm (6') 04/15/2025 10:15 AM CDT Body Mass Index 33.99 04/15/2025 10:15 AM CDT Plan of Treatment Upcoming Encounters Date Type Department Care Team (Late st Contact Info) Description 08/10/2025 2:00 PM CDT Office Visit [address] [place] [address] [place] [address] [place] [address] 08/11/2025 1:20 PM CDT Office Visit [facility] [place] [address] 4[address] [place] [phone] Samuel Holly MD [address] [facility] [address] [place], [place] [address] Health Maintenance Due Date Last Done Comments COVID-19 VACCINE ( season) 2024 03/15/2021, 02/15/2021 INFLUENZA VACCINE (#1) 2025 , 09/03/2022, 07/18/2021 ANNUAL REVIEW OF HM ORDERS 04/15/202604/15, 11/14/2023, 09/03/2022, Additional history exists BMP 04/15/2026 04/15/2025, 08/12, 11/25/2023, Additional history exists YEARLY PREVENTIVE VISIT 04/15/2026 04/15/20, 09/08/2024, 09/03/2022, Additional history exists DIABETES SCREENING 04/15/2028 04/15/2025, 1 , 11/25/2023, Additional history exists ADVANCE CARE PLANNING 04/15/2030 04/15/2025 , 11/25/2023, 09/03/2022 LIPID 04/15/2030 04/15/2025, 08/11, 07/18/2021, Additional history exists DTAP/TDAP/TD VACCINE (3 - Td or Tdap) 07/18/2031 07/18/2021, 04/07/2007, 11/10/2006 ZOSTER VACCINE (1 of 2) 2031 HEPATITIS B VACCINE Completed 04/03/1994, 10/31/1993, 09/21/1993 MIGRAINE ACTION PLAN Completed 07/08/2013 HEPATITIS C SCREENING Completed 03/02/2015 HIV SCREENING Completed 03/02/2015, 03/16/2013 PHQ-2 (once per calendar year) Completed 12/24/2024, 09/08/2024, 11/14/2023, Additional history exists HPV VACCINE (No Doses Required) Completed MENINGITIS VACCINE Aged Out No longer eligible based on patient's age to complete this topic PNEUMOCOCCAL VACCINE: PEDIATRICS (0 to 5 YEARS) AND AT-RISK PATIENTS (6 to 49 YEARS) Aged Out No longer eligible based on patient's age to complete this topic Procedures Procedure Name Priority Date/Time Associated Diagnosis Comments LIPID REFLEX TO DIRECT LDL PANEL Routine 04/15/2025 10:59 AM CDT Routine general medical examination at a health care facility BASIC METABOLIC PANEL Routine 04/15/2025 10:59 AM CDT Routine general medical examination at a health care facility HIV ANTIGEN ANTIBODY COMBO Routine 03/02/2015 12:19 PM CDT Screen for STD (sexually transmitted disease) HEPATITIS C ANTIBODY Routine 03/02/2015 12:19 PM CDT Screen for STD (sexually transmitted disease) from Last 3 Months or Most Recently Relevant to Health Maintenance Results * (ABNORMAL) Lipid panel reflex to direct LDL Non-fasting (04/15/2025 10:59 AM CDT) Cholesterol 189 <200 mg/dL 04/15/2025 6:07 PM CDT [facility] Triglycerides 183(H) <150 mg/dL 04/15/2025 6:07 PM CDT [facility] Direct Measure HDL 33(L) >=40 mg/dL 04/15/2025 6:07 PM CDT [facility] LDL Cholesterol Calculated 119(H) <100 mg/dL 04/15/2025 6:07 PM CDT [facility] Non HDL Cholesterol 156(H) <130 mg/dL 04/15/2025 6:07 PM CDT [facility] Patient Fasting > 8hrs? Unknown 04/15/2025 6:07 PM CDT [facility] Blood BLOOD SPECIMEN / Unknown Venipuncture / Unknown 04/15/2025 10:59 AM CDT 04/15/2025 10:59 AM CDT Narrative [facility] - 04/15/2025 6:07 PM CDT Cholesterol Desirable: < 200 mg/dL Borderline High: 200 - 239 mg/dL High: >= 240 mg/dL Triglycerides Normal: < 150 mg/dL Borderline High: 150 - 199 mg/dL High: 200-499 mg/dL Very High: >= 500 mg/dL Direct Measure HDL Female: >= 50 mg/dL Male: >= 40 mg/dL LDL Cholesterol Desirable: < 100 mg/dL Above Desirable: 100 - 129 mg/dL Borderline High: 130 - 159 mg/dL High: 160 - 189 mg/dL Very High: >= 190 mg/dL Non HDL Cholesterol Desirable: < 130 mg/dL Above Desirable: 130 - 159 mg/dL Borderline High: 160 - 189 mg/dL High: 190 - 219 mg/dL Very High: >= 220 mg/dL us Misty Flynn MD LAB - BLOOD ORDERABLES Final Res ult [facility] [address] [facility], Room [address] [place] [phone] * Basic metabolic panel (Ca, Cl, CO2, Creat, Gluc, K, Na, BUN) (04/15/2025 10:59 AM CDT) Sodium 139 135 - 145 mmol/L 04/15/2025 6:07 PM CDT [facility] Potassium 4.3 3.4 - 5.3 mmol/L 04/15/2025 6:07 PM CDT [facility] Chloride 100 98 - 107 mmol/L 04/15/2025 6:07 PM CDT [facility] Carbon Dioxide (CO2) 29 22 - 29 mmol/L 04/15/2025 6:07 PM CDT [facility] Anion Gap 10 7 - 15 mmol/L 04/15/2025 6:07 PM CDT [facility] Urea Nitrogen 11.1 6.0 - 20.0 mg/dL 04/15/2025 6:07 PM CDT [facility] Creatinine 1.17 0.67 - 1.17 mg/dL 04/15/2025 6:07 PM CDT [facility] GFR Estimate 79 >60 mL/min/1.7 3m2 04/15/2025 6:07 PM CDT [facility] Comment:eGFR calculated usin 2020 CKD-EPI equation. Calcium 9.5 8.8 - 10.4 mg/dL 04/15/2025 6:07 PM CDT [facility] Glucose 94 70 - 99 mg/dL 04/15/2025 6:07 PM CDT [facility] Patient Fasting > 8hrs? Unknown 04/15/2025 6:07 PM CDT [facility] Blood BLOOD SPECIMEN / Unknown Venipuncture / Unknown 04/15/2025 10:59 AM CDT 04/15/2025 10:59 AM CDT Misty Flynn MD LAB - BLOOD ORDERABLES Final Res ult [facility] [address] [facility], Room [address] [place] [address] * HIV Antigen Antibody Combo (03/02/2015 12:19 PM CDT) HIV Antigen Antibody Combo Nonreactive HIV-1 p24 Ag & HIV-1/HIV-2 Ab Not Detected NR [facility] Blood specimen (specimen) 03/02/2015 12:19 PM CDT 03/02/2015 12:20 PM CDT Misty Flynn MD LAB - BLOOD ORDERABLES Final Res ult [facility] [address] * Hepatitis C antibody (03/02/2015 12:19 PM CDT) Hepatitis C Antibody Nonreactive Assay performance characteristics have not been established for newborns, infants, and children NR [facility] Blood specimen (specimen) 03/02/2015 12:19 PM CDT 03/02/2015 12:20 PM CDT us Misty Flynn MD LAB - BLOOD ORDERABLES Final Res ult [address] from Last 3 Months or Most Recently Relevant to Health Maintenance Insurance [facility] none (Work) [address] [facility] [address]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 Care Teams Metabolic Specialist Relationship Specialty [place] [address] [place] [address] PCP - General Family Practice 11/14/14 Tamanna Leong, PA-C [address] [address] Physician Assembler Dc Field Ring Physician Assembler Dc Field Ring 04/02/17 Samuel Holly MD [address] [place] [address] [address] [place], [place] [address] Urology 04/02/17 Nisreen Verduzco, RN Registered Nurse Urology 04/11/17 [place] [address] [place], [place] [address] Assigned PCP 03/17/16 Lilia Diego APRN CLINICAL CARE LEADER [address] [place] [address] Nurse Practitioner Family Medicine 02/21/22 Bo Dotson APRN CLINICAL CARE LEADER [address] [place] [address] Nurse Practitioner Urology 09/13/24 Bo Dotson APRN CLINICAL CARE LEADER [address] [place] [address] Assigned Surgical Provider 01/02/25 Samuel Holly MD [address] [facility] [address] [place] [address] Urology 06/28/25
--- OUTSIDE RECORDS SUMMARY | 2025-07-07 10:17 | XMS_ITS | Encounter Summary ---
Author Organization [place] Address [address] [facility] [place] [address] Care Team Providers Care Weather Strip Installer Name Role Phone Misty Flynn MD Primary Care Provider [phone] Tamanna Leong PA-C Unavailable [phone] Samuel Holly MD Unavailable [phone] Nisreen Verduzco RN Unavailable [phone] Misty Flynn MD Unavailable Misty Flynn MD Unavailable Rosa M Salvador Unavailable Unavailable Lilia Diego CARD GRADER SUPERVISOR ENROBING Unavailable Elo Phipps Unavailable Unavailable Bo Dotson CARD GRADER SUPERVISOR ENROBING Unavailable + [phone] Bo Dotson APRN SUPERVISOR ENROBING Unavailable + [phone] Samuel Holly MD Unavailable [phone] Encounter Details Date Type Department Care Team (Late st Contact Info) Description 04/17/2018 [facility] [place] [address] [address] Roshni Cunningham MA Social History Tobacco Use Types Packs/Day Years Used Date Smoking Tobacco: Never Smokeless Tobacco: Never Alcohol Use Standard Drinks/Week Comments Yes 0 (1 standard drink = 0.6 oz pur e alcohol) occ Sex and Gender Information Value Date Recorded Sex Assigned at Not on file Legal 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 4th [place] [phone] Samuel Holly MD [address] [facility] [address] [place], [place] [address] documented as of this encounter Visit Diagnoses Not on filedocumented in this encounter Additional Health Concerns Infection Onset Date Last Indicated Resolved Time Rule Out COVID-19 08/12/2020 08/12/2020 08/14/2020 8:47 PM CDT Assessment Noted Time PHQ-9 Depression Total Score: 0 01/22/20 18 8:00 AM CDT documented as of this encounter Care Teams Weather Strip Installer Relationship Specialty [place] [address] [place] [address] PCP - General Family Practice 11/14/14 [place] [address] [place] [address] PCP - Assigned PCP 03/17/16 01/12/19 Tamanna Leong PA-C [address] [address] Physician Sales Promotion Director Physician Sales Promotion Director 04/02/17 Samuel Holly MD [address] [facility] [address] [place] [address] Urology 04/02/17 Nisreen Verduzco, RN Registered Nurse Urology 04/11/17 [place] [address] [place] [address] Assigned PCP 03/17/16 Rosa M Salvador Personal Advocate & Liaison (PAL) Family Practice 06/05/20 06/11/20 Lilia Diego APRN SUPERVISOR ENROBING [address] [place] [address] Nurse Practitioner Family Medicine 02/21/22 Elo Phipps Personal Advocate & Liaison (PAL) Family Medicine 05/29/23 07/21/23 Bo Dotson APRN SUPERVISOR ENROBING [address] [place] [address] Nurse Practitioner Urology 09/13/24 Bo Dotson APRN SUPERVISOR ENROBING [address] [place] [address] Assigned Surgical Provider 01/02/25 Samuel Holly MD [address] [facility] [address] [place] [address] Urology 06/28/25 documented as of this encounter
--- OUTSIDE RECORDS SUMMARY | 2025-07-07 10:17 | XMS_ITS | Encounter Summary ---
Author Organization [place] Address [address] [facility] [place] [address] Care Team Providers Care Pta Name Role Phone Misty Flynn MD Primary Care Provider [phone] Tamanna Leong PA-C Unavailable Samuel Holly MD Unavailable [phone] Nisreen Verduzco RN Unavailable [phone] Misty Flynn MD Unavailable Lilia Diego CAR REPAIR SUPERVISOR PLANT WORKER Unavailable Bo Dotson CAR REPAIR SUPERVISOR PLANT WORKER Unavailable [phone] Bo Dotson CAR REPAIR SUPERVISOR PLANT WORKER Unavailable + [phone] Encounter Details Date Type Department Care Team (Late st Contact Info) Description 04/16/2025 Results Follow-Up [facility] [address] [place] [address] [place] [address] [place], [place] [phone] Subj: Message about your results Social History Tobacco Use Types Packs/Day Years [...] re latives? 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 Gender Identity Not on file Sexual Orientation Not on file documented as of this encounter Plan of Treatment Upcoming Encounters Date Type Department Care Team (Late st Contact Info) Description 08/10/2025 2:00 PM CDT Office Visit [facility] [address] [place] [address] [place] [address] [place] [address] 08/11/2025 1:20 PM CDT Office Visit [facility] Urology [address] 4th [place] [phone] Samuel Holly MD [address] [place] [address] [address] [place] [address] documented as of this encounter Visit Diagnoses Not on filedocumented in this encounter Additional Health Concerns Assessment Noted Time PHQ-9 Depression Total Score: 0 11/14/19 24 1:43 PM LACQUER PIN PRESS OPERATOR documented as of this encounter Care Teams Pta Relationship Specialty [place] [address] [place], [place] [id number] PCP - General Family Practice 1/5/15 Tamanna Leong PA-C [address] [place] [address] Physician Canoe Builder Physician Canoe Builder 04/02/17 Samuel Holly MD [address] [facility] [address] [place], [place] [address] Urology 04/02/17 Nisreen Verduzco, RN Registered Nurse Urology 04/11/17 [place] [address] [place] [address] Assigned PCP 03/17/16 Lilia Diego APRN PLANT WORKER [address] [place] [address] Nurse Practitioner Family Medicine 02/21/22 Bo Dotson APRN PLANT WORKER [address] [place] [address] Nurse Practitioner Urology 09/13/24 Bo Dotson APRN PLANT WORKER [address] [place] [address] Assigned Surgical Provider 01/02/25 documented as of this encounter
--- OUTSIDE RECORDS SUMMARY | 2025-07-07 10:17 | XMS_ITS | Encounter Summary ---
Author Organization [place] Address [address] [place] [address] Care Team Providers Care Inserter Operator Name Role Phone Misty Flynn MD Primary Care Provider Tamanna Leong PA-C Unavailable [phone] Samuel Holly MD Unavailable [phone] Nisreen Verduzco RN Unavailable [phone] Misty Flynn MD Unavailable Lilia Diego APRN DIRECTOR GENERAL Unavailable Bo Dotson APRN DIRECTOR GENERAL Unavailable + [phone] Bo Dotson APRN DIRECTOR GENERAL Unavailable + [phone] Samuel Holly MD Unavailable [phone] Encounter Details Date Type Department Care Team (Late st Contact Info) Description 03/08/2024 [facility] [place] [address] [address] Francesca Webb MA Social History [...] often do you attend chur ch or christianity services? Never 11/25/2023 Do you belong to any clubs o r organizations such as denominational groups, unions, fraternal or athletic groups, or [...] Answer Date Recorded PHQ-2 Score 0 11/14/2023 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 Gender Identity Not on file Sexual Orientation Not on file documented as of this encounter Plan of Treatment Upcoming Encounters Date Type Department Care Team (Late st Contact Info) Description 08/10/2025 2:00 PM CDT Office Visit [facility] [address] [place] [phone] [place] [address] [place], [place] [phone] 08/11/2025 1:20 PM CDT Office Visit [facility] [address] 4th [place] [address] Samuel Holly MD [address] [facility] [address] [place], [place] [phone] documented as of this encounter Visit Diagnoses Not on filedocumented in this encounter Additional Health Concerns Assessment Noted Time PHQ-9 Depression Total Score: 0 11/14/19 24 1:43 PM ROLLING MILL OPERATOR HELPER documented as of this encounter Care Teams Inserter Operator Relationship Specialty [place] [address] [place] [address] PCP - General Family Practice 11/14/14 Tamanna Leong PA-C [address] [place] [address] Physician Relief Pharmacist Physician Relief Pharmacist 04/02/17 Samuel Holly MD [address] [facility] [address] [place], [place] [address] Urology 04/02/17 Nisreen Verduzco, RAFFY Registered Nurse Urology 04/11/17 [place] [address] [place] [address] Assigned PCP 03/17/16 Lilia Diego APRN DIRECTOR GENERAL [address] [place], [place] [phone] Nurse Practitioner Family Medicine 02/21/22 Bo Dotson APRN DIRECTOR GENERAL [address] [place] [address] Nurse Practitioner Urology 09/13/24 Bo Dotson APRN DIRECTOR GENERAL [address] [place], [place] [address] Assigned Surgical Provider 01/02/25 Samuel Holly MD [address] [facility] [address] [place], [place] [address] Urology 06/28/25 documented as of this encounter
--- OUTSIDE RECORDS SUMMARY | 2025-07-07 10:17 | XMS_ITS | Encounter Summary ---
Author Organization [place] Address [address] [facility] [place] [address] Care Team Providers Care Occupational Therapy Aide Name Role Phone Misty Flynn MD Primary Care Provider [phone] Tamanna Leong PA-C Unavailable [phone] Samuel Holly MD Unavailable [phone] Nisreen Verduzco RN Unavailable [phone] Misty Flynn MD Unavailable Lilia Diego APRN SECOND FACING BASTER Unavailable Bo Dotson APRN SECOND FACING BASTER Unavailable + [phone] Bo Dotson APRN SECOND FACING BASTER Unavailable + [phone] Samuel Holly MD Unavailable [phone] Encounter Details Date Type Department Care Team (Late st Contact Info) Description 03/31/2024 MyC Medical Advice [address] [address] Annamaria Bunch, AUTOMATIC HEAD SAWYER Social History Tobacco Use Types Packs/Day Years [...] often do you attend chur ch or confucianism services? 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 Gender Identity Not on file Sexual Orientation Not on file documented as of this encounter Plan of Treatment Upcoming Encounters Date Type Department Care Team (Late st Contact Info) Description 08/10/2025 2:00 PM CDT Office Visit [facility] [address] [place] [address] [place] [address] [place] [id number] 08/11/2025 1:20 PM CDT Office Visit [facility] [address] 4th [place] [address] Samuel Holly MD [address] [place] [address] 394 [place], [place] [address] documented as of this encounter Visit Diagnoses Not on filedocumented in this encounter Additional Health Concerns Assessment Noted Time PHQ-9 Depression Total Score: 0 11/14/19 24 1:43 PM CURRENCY EXAMINER documented as of this encounter Care Teams Occupational Therapy Aide Relationship Specialty [place] [address] [place], [place] [phone] PCP - General Family Practice 11/14/14 Tamanna Leong PA-C [address] [place] [address] Physician Pelletising Extruder Operator Physician Pelletising Extruder Operator 04/02/17 Samuel Holly MD 420 [facility] 394 [place] [address] Urology 04/02/17 Nisreen Verduzco, RN Registered Nurse Urology 04/11/17 [place] [address] [place] [address] Assigned PCP 03/17/16 Lilia Diego APRN SECOND FACING BASTER [address] [place] [address] Nurse Practitioner Family Medicine 02/21/22 Bo Dotson APRN SECOND FACING BASTER [address] [place] [address] Nurse Practitioner Urology 09/13/24 Bo Dotson APRN SECOND FACING BASTER [address] [place] [address] Assigned Surgical Provider 01/02/25 Samuel Holly MD 420 [facility] 394 [place] [address] Urology 06/28/25 documented as of this encounter
--- OUTSIDE RECORDS SUMMARY | 2025-07-07 10:17 | XMS_ITS | Encounter Summary ---
Author Organization [place] Address [address] [facility] [place] [address] Care Team Providers Care Anatomic Pathologist Name Role Phone Misty Flynn MD Primary Care Provider [phone] Tamanna Leong PA-C Unavailable [phone] Samuel Holly MD Unavailable [phone] Nisreen Verduzco RN Unavailable [phone] Misty Flynn MD Unavailable Lilia Diego FUNERAL GREETER REPLACER Unavailable Elo Phipps Unavailable Unavailable Bo Dotson FUNERAL GREETER REPLACER Unavailable + [phone] Bo Dotson APRN REPLACER Unavailable + [phone] Samuel Holly MD Unavailable [phone] Reason for Visit * Reason Onset Date Comments Patient Request for Note/Letter 09/06/2020 positive covid, needs work note Encounter Details Date Type Department Care Team (Late st Contact Info) Description 09/06/2020 [facility] [place] [facility] [address] [place] [address] [place] [address] [place] [address] Patient Request for Note/Letter (positive ... 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 He had the test completed at [facility]. Patient has been out of work since 08/28/2020. 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 Employer is telling patient he needs to have a negative Covid test prior to returning to work. Patient contacted [facility] to get test repeated and [...] Solis Registered Nurse, AMY (Patient Advocate Liason) [facility] [phone] documented in this encounter Plan of Treatment Upcoming Encounters Date Type Department Care Team (Late st Contact Info) Description 08/10/2025 2:00 PM CDT Office Visit [address] [address] [place] [address] [place] [address] 08/11/2025 1:20 PM CDT Office Visit [facility] [place] [address] [facility] [address] 4th [place] [address] Samuel Holly MD [address] [address] documented as of this encounter Visit Diagnoses Not on filedocumented in this encounter Additional Health Concerns Assessment Noted Time PHQ-9 Depression Total Score: 0 06/07/20 20 7:08 AM CDT documented as of this encounter Care Teams Anatomic Pathologist Relationship Specialty [place] [address] [place] [address] PCP - General Family Practice 11/14/14 Tamanna Leong PA-C [address] [address] Physician Tool And Die Maker Apprentice Physician Tool And Die Maker Apprentice 04/02/17 Samuel Holly MD [address] [address] Urology 04/02/17 Nisreen Verduzco, RN Registered Nurse Urology 04/11/17 [place] [address] [place], [place] [phone] Assigned PCP 03/17/16 Lilia Diego APRN REPLACER [address] [place] [address] Nurse Practitioner Family Medicine 02/21/22 Elo Phipps Personal Advocate & Liaison (PAL) Family Medicine 05/29/23 07/21/23 Bo Dotson APRN REPLACER [address] [place] [address] Nurse Practitioner Urology 09/13/24 Bo Dotson APRN REPLACER [address] [place] [address] Assigned Surgical Provider 01/02/25 Samuel Holly MD [address] [place] [address] 394 [place] [address] Urology 06/28/25 documented as of this encounter
--- OUTSIDE RECORDS SUMMARY | 2025-07-07 10:17 | XMS_ITS | Encounter Summary ---
Author Organization [place] Address [facility] [place] [address] Care Team Providers Care Spring Repairer Helper Hand Name Role Phone Misty Flynn MD Primary Care Provider [phone] Tamanna Leong PA-C Unavailable [phone] Samuel Holly MD Unavailable [phone] Nisreen Verduzco RN Unavailable [phone] Misty Flynn MD Unavailable Misty Flynn MD Unavailable Rosa M Salvador Unavailable Unavailable Lilia Diego REGISTRATION SCHEDULING SPECIALIST AIRCRAFT TIME CLERK Unavailable Elo Phipps Unavailable Unavailable Bo Dotson REGISTRATION SCHEDULING SPECIALIST AIRCRAFT TIME CLERK Unavailable [phone] Bo Dotson REGISTRATION SCHEDULING SPECIALIST AIRCRAFT TIME CLERK Unavailable Samuel Holly MD Unavailable [phone] Reason for Visit * Reason Onset Date Comments Refill Request 12/16/2017 amLODIPine (NORV ASC) 10 MG tablet Encounter Details Date Type Department Care Team (Late st Contact Info) Description 12/16/2017 Refill [facility] [address] [place] [address] [place] [address] [place] [address] Refill Request (amLODIPine (NORVASC) 10 MG tablet) Social History Tobacco Use Types Packs/Day Years Used Date Smoking Tobacco: Never Smokeless Tobacco: Never Alcohol Use Standard Drinks/Week Comments Yes 0 (1 standard drink = 0.6 oz pur e alcohol) occ Sex and Gender Information Value Date Recorded Sex Assigned at Not on file 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 [employer] message sent. Darrel Bell RN EY KEEPER * Telephone Encounter - Misty Flynn MD - 12/17/2017 12:15 PM CST Recommend a follow up in 2 to 3 months Misty Flynn MD [facility] [phone] EY KEEPER * Telephone Encounter - Darrel Bell RN - 12/17/2017 10:11 AM CST Routing refill request to provider for review/approval because: Labs not current: Darrel Bell RN EY KEEPER * Telephone Encounter - Kalani Mota - [...] - Patient is age 18 or older EY KEEPER documented in this encounter Plan of Treatment Upcoming Encounters Date Type Department Care Team (Late st Contact Info) Description 08/10/2025 2:00 PM CDT Office Visit [facility] [address] [place] [phone] [place] Flynn [place] [address] [place] [address] 08/11/2025 1:20 PM CDT Office Visit [facility] Urology [address] 4th [place] [address] Samuel Holly MD 420 [facility] [address] [place], [place] [address] documented as of this encounter Visit Diagnoses Diagnosis Benign essential hypertension Essential hypertension, benign documented in this encounter Additional Health Concerns Infection Onset Date Last Indicated Resolved Time Rule Out COVID-19 08/12/2020 08/12/2020 08/14/2020 8:47 PM CDT Assessment Noted Time PHQ-9 Depression Total Score: 0 03/04/20 17 7:07 AM CDT documented as of this encounter Care Teams Spring Repairer Helper Hand Relationship Specialty [place] [address] [place] [address] PCP - General Family Practice 11/14/14 [place] [address] [place] [address] PCP - Assigned PCP 03/17/16 01/12/19 Tamanna Leong PA-C [address] [place] [address] Physician Pickle Processor Physician Pickle Processor 04/02/17 Samuel Holly MD [address] [place] [address] [address] [place] [address] Urology 04/02/17 Nisreen Verduzco, RN Registered Nurse Urology 04/11/17 [place] [address] [place] [address] Assigned PCP 03/17/16 Rosa M Salvador Personal Advocate & Liaison (PAL) Family Practice 06/05/20 06/11/20 Lilia Diego APRN AIRCRAFT TIME CLERK [address] [place] [address] Nurse Practitioner Family Medicine 02/21/22 Elo Phipps Personal Advocate & Liaison (PAL) Family Medicine 05/29/23 07/21/23 Bo Dotson APRN AIRCRAFT TIME CLERK [address] [place] [address] Nurse Practitioner Urology 09/13/24 Bo Dotson APRN AIRCRAFT TIME CLERK [address] [place] [address] Assigned Surgical Provider 01/02/25 Samuel Holly MD 420 [facility] [address] [place] [address] Urology 06/28/25 documented as of this encounter
--- OUTSIDE RECORDS SUMMARY | 2025-07-07 10:17 | XMS_ITS | Encounter Summary ---
Author Organization [place] Address [address] [facility] [place] [address] Care Team Providers Care Hoop Rolls Operator Name Role Phone Misty Flynn MD Primary Care Provider [phone] Tamanna Leong PA-C Unavailable [phone] Samuel Holly MD Unavailable [phone] Nisreen Verduzco RN Unavailable [phone] Misty Flynn MD Unavailable Lilia Diego APRN VACUUM PAN TENDER Unavailable Bo Dotson APRN VACUUM PAN TENDER Unavailable + [phone] Bo Dotson APRN VACUUM PAN TENDER Unavailable + [phone] Samuel Holly MD Unavailable [phone] Encounter Details Date Type Department Care Team (Late st Contact Info) Description 01/20/2024 MyC Medical Advice [place] [facility] [place] [address] Terrell Rojas Social History Tobacco Use Types [...] often do you attend chur ch or hoahaoism services? 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 Gender Identity Not on file Sexual Orientation Not on file documented as of this encounter Plan of Treatment Upcoming Encounters Date Type Department Care Team (Late st Contact Info) Description 08/10/2025 2:00 PM CDT Office Visit [facility] [address] [place] [address] [place] [address] [place] [id number] 08/11/2025 1:20 PM CDT Office Visit [facility] U[facility] Clinic [address] 4th [place] [address] Samuel Holly MD [address] [place] [address] [address] [place], [place] [address] documented as of this encounter Visit Diagnoses Not on filedocumented in this encounter Additional Health Concerns Assessment Noted Time PHQ-9 Depression Total Score: 0 11/14/19 24 1:43 PM PUBLIC POLICY ASSOCIATE documented as of this encounter Care Teams Hoop Rolls Operator Relationship Specialty Start Date [place] Date Mist[place] [address] [place] [id number] PCP - General Family Practice 11/14/14 Tamanna Leong PA-C [address] [place] [address] Physician Nuclear Officer Physician Nuclear Officer 04/02/17 Samuel Holly MD 420 [facility] [address] [place] [address] Urology 04/02/17 Nisreen Verduzco, RN Registered Nurse Urology 04/11/17 [place] [address] [place] [address] Assigned PCP 03/17/16 Lilia Diego APRN VACUUM PAN TENDER [address] [place] [address] Nurse Practitioner Family Medicine 02/21/22 Bo Dotson APRN VACUUM PAN TENDER [address] [place] [address] Nurse Practitioner Urology 09/13/24 Bo Dotson APRN VACUUM PAN TENDER [address] [place] [address] Assigned Surgical Provider 01/02/25 Samuel Holly MD 420 [facility] 394 [place] [address] Urology 06/28/25 documented as of this encounter
--- OUTSIDE RECORDS SUMMARY | 2025-07-07 10:17 | XMS_ITS | Encounter Summary ---
Author Organization [place] Address [address] [facility] [place] [address] Care Team Providers Care Business Process Manager Name Role Phone Misty Flynn MD Primary Care Provider [phone] Tamanna Leong PA-C Unavailable [phone] Samuel Holly MD Unavailable [phone] Nisreen Verduzco RN Unavailable [phone] Misty Flynn MD Unavailable Lilia Diego APRN MAINTENANCE SERVICES DISPATCHER Unavailable Bo Dotson GREIGE GOODS EXAMINER MAINTENANCE SERVICES DISPATCHER Unavailable + [phone] Bo Dotson APRN MAINTENANCE SERVICES DISPATCHER Unavailable + [phone] Samuel Holly MD Unavailable [phone] Encounter Details Date Type Department Care Team (Late st Contact Info) Description 12/27/2024 MyC Medical Advice [address] [address] Anusha Watts, PHOTO SPECIALIST Social History Tobacco Use Types Packs/Day [...] re latives? 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 Gender Identity Not on file Sexual Orientation Not on file documented as of this encounter Plan of Treatment Upcoming Encounters Date Type Department Care Team (Late st Contact Info) Description 08/10/2025 2:00 PM CDT Office Visit [facility] [address] [place] [phone] [place] Flynn [place] [address] [place] [address] 08/11/2025 1:20 PM CDT Office Visit [facility] Clinic [address] 4th [place] [phone] Samuel Holly MD [address] [place] [address] 394 [place], [place] [phone] documented as of this encounter Visit Diagnoses Not on filedocumented in this encounter Additional Health Concerns Assessment Noted Time PHQ-9 Depression Total Score: 0 11/14/19 24 1:43 PM SUPERVISOR LIVESTOCK YARD documented as of this encounter Care Teams Business Process Manager Relationship Specialty [place] [address] [place] [address] PCP - General Family Practice 11/14/14 Tamanna Leong PA-C [address] [place] [address] Physician Event Security Officer Physician Event Security Officer 04/02/17 Samuel Holly MD [address] [place] [facility] 394 [place], [place] [address] Urology 04/02/17 Nisreen Verduzco, RN Registered Nurse Urology 04/11/17 [place] [address] [place], [place] [phone] Assigned PCP 03/17/16 Lilia Diego APRN MAINTENANCE SERVICES DISPATCHER [address] [place], [place] [phone] Nurse Practitioner Family Medicine 02/21/22 Bo Dotson APRN MAINTENANCE SERVICES DISPATCHER [address] [place] [address] Nurse Practitioner Urology 09/13/24 Bo Dotson APRN MAINTENANCE SERVICES DISPATCHER [address] [place] [address] Assigned Surgical Provider 01/02/25 Samuel Holly MD 420 [facility] 394 [place], [place] [address] Urology 06/28/25 documented as of this encounter
--- OUTSIDE RECORDS SUMMARY | 2025-07-07 10:17 | XMS_ITS | Encounter Summary ---
Author Organization [employer] Address [address] [facility] [place] [address] Care Team Providers Care Painter Name Role Phone Misty Flynn MD Primary Care Provider [phone] Tamanna Leong PA-C Unavailable [phone] Samuel Holly MD Unavailable [phone] Nisreen Verduzco RN Unavailable [phone] Misty Flynn MD Unavailable Lilia Diego ART SPECIALIST SHIP PILOT Unavailable Elo Phipps Unavailable Unavailable Bo Dotson ART SPECIALIST SHIP PILOT Unavailable + [phone] Bo Dotson ART SPECIALIST SHIP PILOT Unavailable + [phone] Samuel Holly MD Unavailable [phone] Encounter Details Date Type Department Care Team (Late st Contact Info) Description 10/09/2022 [facility] Medical Advice [address] [phone] Kristie Thomas, RN Social History Tobacco Use Types Packs/Day Years Used Date Smoking Tobacco: Never Smokeless Tobacco: Never Alcohol Use Standard Drinks/Week Comments Yes 0 (1 standard drink = 0.6 oz pur e alcohol) moderate use PHQ-2 Answer Date Recorded PHQ-2 Score 0 09/03/2022 Sex and Gender Information Value Date Recorded Sex Assigned at Not on file 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 Gender Identity Not on file Sexual Orientation Not on file documented as of this encounter Plan of Treatment Upcoming Encounters Date Type Department Care Team (Late st Contact Info) Description 08/10/2025 2:00 PM CDT Office Visit [facility] [address] [place] [address] [place] [address] [place] [address] 08/11/2025 1:20 PM CDT Office Visit [facility] Urology [facility] [address] [facility] 4th [place] [phone] Samuel Holly MD [address] [place] [address] documented as of this encounter Visit Diagnoses Not on filedocumented in this encounter Additional Health Concerns Assessment Noted Time PHQ-9 Depression Total Score: 0 09/03/20 22 7:02 AM CDT documented as of this encounter Care Teams Painter Relationship Specialty [place] [address] [place], [place] [phone] PCP - General Family Practice 11/14/14 Tamanna Leong PA-C 6363 [facility] [place] [address] [address] Physician Air Traffic Control Specialist Center Physician Air Traffic Control Specialist Center 04/02/17 Samuel Holly MD [address] [place] [address] Urology 04/02/17 Nisreen Verduzco, RN Registered Nurse Urology 04/11/17 [place] [address] [place] [address] Assigned PCP 03/17/16 Lilia Diego APRN SHIP PILOT [address] [place] [address] Nurse Practitioner Family Medicine 02/21/22 Elo Phipps Personal Advocate & Liaison (PAL) Family Medicine 05/29/23 07/21/23 Bo Dotson APRN SHIP PILOT [address] [facility] [address] [place] [address] Nurse Practitioner Urology 09/13/24 Bo Dotson APRN SHIP PILOT 6[address] [facility] [address] [place] [address] Assigned Surgical Provider 01/02/25 Samuel Holly MD 420 [facility] 394 [place], [place] [address] Urology 06/28/25 documented as of this encounter
--- OUTSIDE RECORDS SUMMARY | 2025-07-07 10:17 | XMS_ITS | Encounter Summary ---
Author Organization [place] Address [address] [place] [address] Care Team Providers Care Mortgage Clerk Name Role Phone Misty Flynn MD Primary Care Provider [phone] Tamanna Leong PA-C Unavailable [phone] Samuel Holly MD Unavailable [phone] Nisreen Verduzco RN Unavailable [phone] Misty Flynn MD Unavailable Lilia Diego TEMPERATURE LOGGING OPERATOR AUTOMATION ENGINEERING TECHNICIAN Unavailable Elo Phipps Unavailable Unavailable Bo Dotson TEMPERATURE LOGGING OPERATOR AUTOMATION ENGINEERING TECHNICIAN Unavailable + [phone] Bo Dotson APRN AUTOMATION ENGINEERING TECHNICIAN Unavailable + [phone] Samuel Holly MD Unavailable [phone] Encounter Details Date Type Department Care Team (Late st Contact Info) Description 09/12/2021 [facility] Medical Advice [address] [address] Arely Stinson RN Social History Tobacco Use Types Packs/Day [...] on file 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 Gender Identity Not on file Sexual [...] Description 08/10/2025 2:00 PM CDT Office Visit [facility] [address] [place] [address] [place] [address] [place] [address] 08/11/2025 1:20 PM CDT Office Visit [facility] Urology [address] 4th [place] [phone] Samuel Holly MD [address] [address] documented as of this encounter Visit Diagnoses Not on filedocumented in this encounter Additional Health Concerns Assessment Noted Time PHQ-9 Depression Total Score: 0 08/23/20 21 7:02 AM CDT documented as of this encounter Care Teams Mortgage Clerk Relationship Specialty [place] [address] [place], [place] [phone] PCP - General Family Practice 11/14/14 Tamanna Leong PA-C [address] [address] Physician Sales And Marketing Engineer Physician Sales And Marketing Engineer 04/02/17 Samuel Holly MD 420 [facility] 394 [place], [place] [address] Urology 04/02/17 Nisreen Verduzco, RN Registered Nurse Urology 04/11/17 [place] [address] [place] [address] Assigned PCP 03/17/16 Lilia Diego APRN AUTOMATION ENGINEERING TECHNICIAN [address] [place] [address] Nurse Practitioner Family Medicine 02/21/22 Elo Phipps Personal Advocate & Liaison (PAL) Family Medicine 05/29/23 07/21/23 Bo Dotson APRN AUTOMATION ENGINEERING TECHNICIAN [address] [facility] [address] [place] [address] Nurse Practitioner Urology 09/13/24 Bo Dotson APRN AUTOMATION ENGINEERING TECHNICIAN [address] [facility] [address] [place] [address] Assigned Surgical Provider 01/02/25 Samuel Holly MD 420 [facility] 394 [place] [address] Urology 06/28/25 documented as of this encounter
--- OUTSIDE RECORDS SUMMARY | 2025-07-07 10:17 | XMS_ITS | Encounter Summary ---
Author Organization [place] Address [address] [facility] [place] [address] Care Team Providers Care Resource Technician Name Role Phone Misty Flynn MD Primary Care Provider [phone] Tamanna Leong PA-C Unavailable [phone] Samuel Holly MD Unavailable [phone] Nisreen Verduzco RN Unavailable [phone] Misty Flynn MD Unavailable Misty Flynn MD Unavailable Rosa M Salvador Unavailable Unavailable Lilia Diego INVESTIGATIONS MANAGER METAL FURNACE OPERATOR Unavailable Elo Phipps Unavailable Unavailable Bo Dotson INVESTIGATIONS MANAGER METAL FURNACE OPERATOR Unavailable + [phone] Bo Dotson APRN METAL FURNACE OPERATOR Unavailable + [phone] Samuel Holly MD Unavailable [phone] Encounter Details Date Type Department Care Team (Late st Contact Info) Description 08/09/2016 [facility] [address] [address] Darrel Bell, RN Social History Tobacco Use Types Packs/Day Years Used Date Smoking Tobacco: Never Smokeless Tobacco: Never Alcohol Use Standard Drinks/Week Comments Yes 0 (1 standard drink = 0.6 oz pur e alcohol) weekends Sex and Gender Information Value Date Recorded Sex Assigned at Not on file Legal Sex Male 3:18 AM [employer] Gender Identity Not on file Sexual Orientation Not on file documented as of this encounter Plan of Treatment Upcoming Encounters Date Type Department Care Team (Late st Contact Info) Description 08/10/2025 2:00 PM CDT Office Visit [facility] [address] [place] [address] [place] [id number] [place] [address] 08/11/2025 1:20 PM CDT Office Visit [facility] Urology [place] [address] [facility] 4th [place] [phone] Samuel Holly MD [address] [facility] [address] [place], [place] [address] documented as of this encounter Visit Diagnoses Not on filedocumented in this encounter Additional Health Concerns Infection Onset Date Last Indicated Resolved Time Rule Out COVID-19 08/12/2020 08/12/2020 08/14/2020 8:47 PM CDT Assessment Noted Time PHQ-9 Depression Total Score: 0 07/09/20 16 7:20 AM CDT documented as of this encounter Care Teams Resource Technician Relationship Specialty [place] [address] [place] [address] PCP - General Family Practice 11/14/14 [place] [address] [place] [address] PCP - Assigned PCP 03/17/16 01/12/19 Tamanna Leong PA-C [address] [address] Physician Sdc Teacher Physician Sdc Teacher 04/02/17 Samuel Holly MD [address] [facility] [address] [place] [address] Urology 04/02/17 Nisreen Verduzco, RN Registered Nurse Urology 04/11/17 [place] [address] [place] [address] Assigned PCP 03/17/16 Rosa M Salvador Personal Advocate & Liaison (PAL) Family Practice 06/05/20 06/11/20 Lilia Diego APRN METAL FURNACE OPERATOR [address] [place] [address] Nurse Practitioner Family Medicine 02/21/22 Elo Phipps Personal Advocate & Liaison (PAL) Family Medicine 05/29/23 07/21/23 Bo Dotson APRN METAL FURNACE OPERATOR [address] [place] [address] Nurse Practitioner Urology 09/13/24 Bo Dotson APRN METAL FURNACE OPERATOR [address] [place] [address] Assigned Surgical Provider 01/02/25 Samuel Holly MD [address] [facility] [address] [place] [address] Urology 06/28/25 documented as of this encounter
[2025-07-07 10:19] VITALS: BP 154/106; PULSE 111; RESP 16; TEMP 37.3; O2SAT 97; BMI 33.2
--- NOTE | 2025-07-07 10:26 | ED_ITS ---
HPI - General Adult General Time Seen by Provider: 10:26 Date Seen: 07/07/25 Chief complaint: Cough Stated complaint: symptom of pneumonia Time Seen by Provider: 07/07/25 10:25 Source: patient and RN notes reviewed Mode of arrival: ambulatory Limitations: no limitations History of Present Illness HPI narrative: This 44-year-old male is coming in with concerns of pneumonia. He states overnight last night he really felt stuff in his lungs. He has not necessarily noted any fevers but has not feeling well. He states he is coughing a lot. He noticed increased nasal drainage last night. He was in the ER on June 30 at [place] [address], he had gone in for headache and had workup with negative head CT. He had a normal BMP, sed rate, negative mono, negative COVID. His CRP was 1.3 with less than 0.5 normal for them. His white blood count was 11.3, just slightly elevated, hemoglobin 14.1, platelet count [id number]. This was thought to probably be headache either muscle tension or migrainous in nature. Patient has underlying complex regional pain syndrome of his left lower extremity on chronic opioids, underlying hypertension. He has no history of asthma. He does not feel any chest pain concerning him for any cardiac issues. Related Data Home Medications ?Medication ?Instructions ?Recorded ?Confirmed Tracey 03/11/25 losartan 50 mg tablet 50 mg PO DAILY 03/11/25 0501/04 Allergies Allergy/AdvReac Type Severity Reaction Status Date / Time Sulfa (Sulfonamide Allergy Mild Verified 03/11/25 09:33 Antibiotics) Review of Systems Status of ROS: Reports: 6 or more systems reviewed and unremarkable except as noted in History and below [facility] Social History Smoking Status: Never smoker How often do you have a drink containing alcohol: 2-4 times a month AUDIT-C Alcohol total score: 2 Non-prescribed substance use: denies use Exam 2 Const: Vital Signs, click to edit/add: Vital Signs - 24 hr 07/07/25 10:19 07/07/25 11:14 Temperature 99.1 F 97.5 F L Pulse Rate [Pulse Oximeter] 111 H 87 Respiratory Rate 16 16 Blood Pressure [Ri ght Upper Arm] 154/106 H 153/99 H Pulse Oximetry 97 97 Oxygen Delivery Me thod Room Air Room Air This 44-year-old male is alert, interactive, no apparent distress but does look tired, has some dark circles under his eyes. Sclera clear. He is wearing a mask. Speech is normal, no hoarseness. Lungs are clear on inspiration, hear some end expiratory rhonchi but not wheezing throughout, prolonged expiratory phase. No crackles noted. He has no accessory muscle use, no tachypnea. CV regular rate and rhythm, no murmur. Note he was mildly tachycardic when coming in but resting his heart rate sounds normal. Abdomen soft, nontender, nondistended. No lower extremity edema, patient ambulatory into the ED of his own accord. Neck supple, no adenopathy or masses noted. Documenting provider has reviewed patient's vital signs: yes Course Course ED Course: Patient and I reviewed concern for bacterial respiratory infections like pneumonia. Certainly sounds concerning in his history that he is developed a bacterial infection. Will do a CBC and chest x-ray. Did discuss doing the triple viral swab but at this time in his illness, really would be more consistent with a secondary infection. I doubt doing the triple viral swab is going to change any management and thus he and I a have discussed not doing this. I will talk to him once I have seen his CBC and chest x-ray report. Patient believes he just needs an antibiotic, at this point on his examination and given his history, I am inclined to agree. May consider short course of steroids given his lung findings as well. Just need to see where his white count and his chest imaging points to. Vital Signs Vital signs: Initial Vital Signs Temperature 99.1 F 07/07/25 10:19 Temperature Source Temporal Artery Scan 07/07/25 10:19 Pulse Rate 111 H 07/07/25 10:19 Respiratory Rate 16 07/07/25 10:19 Blood Pressure 154/106 H 07/07/25 10:19 Blood Pressure Mean 122 H 07/07/25 10:19 Pulse Oximetry 97 07/07/25 10:19 Oxygen Delivery Method Room Air 07/07/25 10:19 Vital Signs Temperature 99.1 F 07/07/25 10:19 Pulse Rate 111 H 07/07/25 10:19 Respiratory Rate 16 07/07/25 10:19 Blood Pressure 154/106 H 07/07/25 10:19 Pulse Oximetry 97 07/07/25 10:19 Oxygen Delivery Method Room Air 07/07/25 10:19 Temperature 97.5 F L 07/07/25 11:14 Pulse Rate 87 07/07/25 11:14 Respiratory Rate 16 07/07/25 11:14 Blood Pressure 153/99 H 07/07/25 11:14 Pulse Oximetry 97 07/07/25 11:14 Oxygen Delivery Method Room Air 07/07/25 11:14 Medical Decision Making Lab Data Lab results reviewed: Yes I reviewed the patient's lab results Labs: Lab Results 07/07/25 Range/Units 10:50 WBC 11.70 H (4.50-11.00) K/uL RBC 5.03 (4.30-5.90) m/uL Hgb 15.1 (13.5-17.5) gm/dL Hct 43.7 (37.0-53.0) % MCV 87 (80-100) fL MCH 30 (26-34) pg MCHC 35 (32-36) gm/dL RDW Coeff of Theresa 12.1 (11.5-15.5) % Plt Count 277 (140-440) K/uL Neut % (Auto) 76.8 H (42.0-72.0) % Lymph % (Auto) 12.4 L (20-44) % [place] % (Auto) 8.5 (0.0-11.0) % Eos % (Auto) 1.8 (0.0-7.0) % Baso % (Auto) 0.3 (0.0-3.0) % Neut # (Auto) 9.00 H (1.7-7.0) K/uL Lymph # (Auto) 1.50 (0.90-2.90) K/uL [place] # (Auto) 1.00 H (0.00-0.90) K/UL Eos # (Auto) 0.20 (0.00-0.50) K/uL Baso # (Auto) 0.00 (0.00-0.30) K/uL Abs Immat Gran (auto) 0.00 (0.00-0.30) K/uL Imm/Tot Granulo (auto) 0.2 % Imaging Data Chest x-ray: Attestation: I have reviewed the pertinent imaging results. Radiologist's impression: Patient: SOULEYMANE HOLT Facility:?[facility] Patient ID:?[id number] Site Patient ID:?[id number]. Site :?[id number] Study:?XRay-Chest 2 VIEW-07/07/2025 10:45:47 AM Ordering Physician:Shyla Ng Final Report: INDICATION: Chest pain. TECHNIQUE: Chest 2 views. COMPARISON: 03/17/2018. FINDINGS: New minimal left basilar opacities. Elevation right hemidiaphragm is unchanged. No pleural effusion or pneumothorax. Heart size and mediastinal contours are normal. IMPRESSION: 1. Minimal left basilar opacities, likely atelectasis. Dictated by Kamran Juarez MD @ 07/07/2025 10:49:37 AM (Electronic Signature) Discharge Plan Discharge Clinical Impression: Community acquired pneumonia Qualifiers: Laterality: left Lung location: lower lobe of lung Qualified Code(s): J18.9 - Pneumonia, unspecified organism Patient Disposition: Home, Self-Care Condition: Stable Instructions: Community Acquired Pneumonia (ED) Additional Instructions: Start antibiotics and take as prescribed. Have also given you a short course of steroids to help with any inflammatory component, do believe these will help you as well, take with food to minimize any side effects. If you are not improving with this outlined course of management over the next week, feel you are worsening at any point, please seek re-evaluation. You can still use [id number] cough or cold medicines as needed, follow instructions provided on any packaging or bottles. From [employer]: 1. Z-Cortez per package instructions 2. Amoxicillin 500 mg 3 times a day for 10 days 3. Prednisone 20 mg twice a day for 5 days Activity Level: Activity as Tolerated Prescriptions: No Action losartan 50 mg tablet 50 mg PO DAILY Tracey Follow Up/Referrals: Provider,Not a Local [Primary Care Provider, Family Practice] Stand Alone Forms: [facility] Info Instructions
--- NOTE | 2025-07-07 10:35 | CRLHL7_ITS ---
For Patients: As a result of the Century Cures Act, medical imaging exams and procedure reports are released immediately into your electronic medical record. You may view this report before your referring provider. If you have questions, please contact your health care provider. INDICATION: Chest pain. TECHNIQUE: Chest 2 views. COMPARISON: 03/17/2018. FINDINGS: New minimal left basilar opacities. Elevation right hemidiaphragm is unchanged. No pleural effusion or pneumothorax. Heart size and mediastinal contours are normal. IMPRESSION: 1. Minimal left basilar opacities, likely atelectasis. Dictated by Kamran Juarez MD @ 07/07/2025 10:49:37 AM (Electronically Signed)
[2025-07-07 10:58] LABS: Hematocrit 43.7 % (37.0-53.0); Hemoglobin* 15.1 gm/dL (13.5-17.5); Immature Granulocytes Pct Auto 0.2 %; Mean Corpuscular HGB Conc 35 gm/dL (32-36); Mean Corpuscular Hemoglobin 30 pg (26-34); Mean Corpuscular Volume 87 fL (80-100); RDW Coefficient of Variation % 12.1 % (11.5-15.5); Red Blood Count 5.03 m/uL (4.30-5.90); White Blood Count* 11.70 K/uL (4.50-11.00)
[2025-07-07 11:01] LABS: Immature Granulocytes Abs Auto 0.00 K/uL (0.00-0.30); Lymphocytes Absolute Auto 1.50 K/uL (0.90-2.90); Slide Review Reflex No
[2025-07-07 11:14] VITALS: BP 153/99; PULSE 87; RESP 16; TEMP 36.4; O2SAT 97
== END 2025-07-07 11:45 | disposition home or self-care (01) ==
PROVIDERS: Emergency Provider Family Medicine
DX: J18.9 Pneumonia, unspecified organism (principal)
CPT/HCPCS: 36415; 71046; 85025; 99283; 99284